=== PATIENT | male | born 1945 | race Caucasian/White ===

== ENCOUNTER 2016-05-19 12:42 | Emergency (ER) | payer OTHER ==
[2016-05-19] MEDS ORDERED: DUONEB (A & A) INH ONE (13:07)
--- NOTE | 2016-05-19 13:15 | PROVIDER DOCUMENTATION ---
HPI-Respiratory General - General Source: patient - History of Present Illness-Resp Quality of Pain: reports: tightness Severity in ED: reports: mild, moderate Onset/Duration: reports: gradual, 1 week ago Timing: reports: still present, constant Context: reports: multiple patients with similar complaints. denies: out of meds Cough Quality/Degree: reports: moderate, dry cough Episode Frequency: occasional episodes Current Respiratory Medication Therapy: Initiated see nurses note Modifying Factors: worse with: coughing Associated Symptoms: reports: cough, shortness of breath, short of breath. denies: chest pain/soreness, fever/chills, heart racing, hurts to breathe, nasal congestion, nasal drainage, wheezing Similar Symptoms Previously?: Yes Recently seen or treated by another doctor?: Yes <Gerry Sanabria - Last Filed: 05/19/16 13:11> <Sara Mcfarland - Last Filed: 05/19/16 14:01> - General Chief Complaint: Cough Stated Complaint: SOB Time Seen by Provider: 05/19/16 13:00 Allergies/Adverse Reactions: Patient Allergies Allergy/AdvReac Type Severity Reaction Status Date / Time codeine Allergy Mild RASH Verified 05/22/14 15:22 blood pressure pill Allergy Mild tachycardia Uncoded 05/22/14 15:22 Home Medications: Home Medication List Medication Instructions Recorded Confirmed Last Taken Type Omeprazole [Prilosec] 20 mg PO DAILY@0700 06/01/13 05/22/14 06/01/13 13:00 History Valsartan [Diovan] 320 mg PO DAILY 06/01/13 05/22/14 06/01/13 13:00 History Amlodipine Besylate 10 mg PO DAILY 05/22/14 05/22/14 Unknown History Aspirin [Aspirin EC] 325 mg PO DAILY 05/22/14 05/22/14 Unknown History Carisoprodol [Soma] 350 mg PO BID 05/22/14 05/22/14 Unknown History Clonidine [Catapres] 0.1 mg PO TID 05/22/14 05/22/14 Unknown History Digoxin [Lanoxin] 125 microgm PO DAILY 05/22/14 05/22/14 Unknown History Albuterol 2.5MG/Ipratrop 0.5MG 3 ml INH Q4H PRN PRN #0 neb 05/24/14 Unknown Rx [Duoneb (A & A)] Hydrochlorothiazide 25 mg PO DAILY #0 05/24/14 05/22/14 06/01/13 13:00 Rx Oseltamivir [Tamiflu] 75 mg PO BID #0 capsule 05/24/14 Unknown Rx Levofloxacin [Levaquin] 750 mg PO DAILY #10 tablet 05/19/16 Unknown Rx Prednisone [Deltasone] 20 mg PO DIRECTED #12 tablet 05/19/16 Unknown Rx - History of Present Illness-Resp Nature of Presenting Problem: patient is a 70 y/o M that presents with one week of shortness of breath, cough congestion. Pt was seen by x 2 this week, sent here for evaluation for possible pneumonia. patient denies fever/chills, chest pain, or sore throat. (Gerry Sanabria) Review of Systems - Adult - REVIEW OF SYSTEMS - ADULT Constitutional: denies: chills, fever Eyes: denies: decreased vision, blurred vision, double vision Ears, Nose, Mouth & Throat: denies: ear pain, sinus problem, throat pain, throat swelling Cardiovascular: denies: chest pain, palpitations, syncope Respiratory: reports: cough, shortness of breath. denies: wheezing Gastrointestinal: reports: no symptoms reported Genitourinary: reports: no symptoms reported Musculoskeletal: reports: no symptoms reported Integumentary: reports: no symptoms reported Neurological: reports: no symptoms reported Psychiatric: reports: no symptoms reported Endocrine: reports: no symptoms reported Hematologic/Lymphatic: reports: no symptoms reported Allergic/Immunologic: reports: no symptoms reported All Other Systems: Reviewed and Negative <Gerry Sanabria - Last Filed: 05/19/16 13:11> Past History - Adult - PAST MEDICAL HISTORY-ADULT Review of Records: reports: Old Records Reviewed, Nursing Assessment Review, Medications Reviewed, Social history reviewed & non-contributory. Major Childhood Illnesses: reports: denies history Cardiovascular: reports: cardiac disease, CAD, HTN Respiratory: reports: denies history Gastrointestinal: reports: GERD, ulcer Obstetrical/Gynecological: reports: denies history Genitourinary: reports: denies history Musculoskeletal: reports: arthritis, chronic pain, other fractures Neurological: reports: denies history Endocrine/Immune: reports: denies history Other Conditions: reports: denies history - PRIOR SURGERIES/PROCEDURES Surgical/Procedure History: reports: colonoscopy, bowel surgery, orthopedic ( extremity) - IMMUNIZATION STATUS Childhood Immunizations: See Nurse Assessment Flu Vaccine: See Nurse Assessment - FAMILY HISTORY Family History: reviewed, not pertinent <Gerry Sanabria - Last Filed: 05/19/16 13:11> Physical Exam-General - PHYSICAL EXAM-ADULT Initial Vital Signs Reviewed: Yes - CONSTITUTIONAL General Appearance: alert, no apparent distress - EYES Eyes: PERRL/EOMI, pink conjunctivae - HEAD, EARS, NOSE, MOUTH & THROAT HENMT: normocephalic/atraumatic, moist mucous membranes, normal ENT inspection - NECK Neck: full range of motion, normal inspection - RESPIRATORY Respiratory: lungs clear, normal breath sounds, no pleuratic chest pain, no respiratory distress, no accessory muscle use - CARDIOVASCULAR Cardiovascular: regular rate, rhythm, no edema, no murmur - GASTROINTESTINAL (ABDOMEN) Abdominal Exam: normal bowel sounds, non tender, soft - MUSCULOSKELETAL Extremity: normal range of motion, normal inspection - SKIN Integumentary: normal color, warm/dry - NEUROLOGIC Neurologic: grossly normal, no motor/sensory deficits - PSYCHIATRIC Psych/Mental Status: normal mood/affect, normal thought content, normal thought process, oriented x 3 <Gerry Sanabria - Last Filed: 05/19/16 13:11> Progress <Gerry Sanabria - Last Filed: 05/19/16 13:11> - XRAY 1 XRAY: Bilateral XRAY Study: Chest Impression: Abnormal (MILD BASILAR INFILTRATES AND EFFUSIONS PER RADIOLOGY) <Sara Mcfarland - Last Filed: 05/19/16 14:01> - PLAN OF CARE/RESULTS Progress/Plan/Lab Results: Vital Signs Temp Pulse Resp BP Pulse Ox 05/19/16 12:53 97.6 F 99 H 24 160/102 99 codeine Allergy (Mild, Verified 05/22/14 15:22) RASH blood pressure pill Allergy (Mild, Uncoded 05/22/14 15:22) tachycardia Omeprazole [Prilosec] 20 mg PO DAILY@0700 06/01/13 Valsartan [Diovan] 320 mg PO DAILY 06/01/13 Amlodipine Besylate 10 mg PO DAILY 05/22/14 Aspirin [Aspirin EC] 325 mg PO DAILY 05/22/14 Carisoprodol [Soma] 350 mg PO BID 05/22/14 Clonidine [Catapres] 0.1 mg PO TID 05/22/14 Digoxin [Lanoxin] 125 microgm PO DAILY 05/22/14 Albuterol 2.5MG/Ipratrop 0.5MG [Duoneb (A & A)] 3 ml INH Q4H PRN PRN #0 neb 04/09 Hydrochlorothiazide 25 mg PO DAILY #0 05/24/14 Oseltamivir [Tamiflu] 75 mg PO BID #0 capsule 05/24/14 Laboratory 05/19/16 05/19/16 13:20 13:20 WBC 8.47 RBC 5.17 Hgb 16.5 Hct 47.1 MCV 91.1 MCH 31.9 H MCHC 35.0 RDW Std Deviation 14.6 H Plt Count 212 MPV 10.4 Immature Gran % (Auto) 0.1 Neut % (Auto) 71.2 Lymph % (Auto) 18.7 L Love % (Auto) 8.5 Eos % (Auto) 0.9 Baso % (Auto) 0.6 Immature Gran # (Auto) 0.01 Neut # (Auto) 6.03 Lymph # (Auto) 1.58 Love # (Auto) 0.72 H Eos # (Auto) 0.08 Baso # (Auto) 0.05 Sodium 133 L Potassium 4.5 Chloride 96 L Carbon Dioxide 24 L Anion Gap 13 BUN 15 Creatinine 1.0 Estimated GFR/1.73 m2 > 60 BUN/Creatinine Ratio 15 Glucose 108 H Calculated Osmolality 268 Calcium 10.0 Total Bilirubin 1.00 AST 70 H ALT 65 H Alkaline Phosphatase 114 Total Protein 7.6 Albumin 4.9 Globulin 3.0 Albumin/Globulin Ratio 2.0 Orders Category Date Time Status CHEST-2 VIEWS [RAD] Stat Exams 05/19/16 12:59 Draft BLOOD CULTURE [BLDCUL] Stat Lab 05/19/16 12:59 Ordered CBC WITH DIFF [HEME] Stat Lab 05/19/16 13:20 Completed COMPREHENSIVE METABOLIC PANEL [CHEM] Stat Lab 05/19/16 13:20 Completed Albuterol 2.5MG/Ipratrop 0.5MG [Duoneb (A & A)] Med 05/19/16 13:07 Discontinued 3 ml INH NOW ONE Aerosol Treatments Routine Oth 05/19/16 13:07 Active Aerosol Treatments Stat Oth 05/19/16 13:07 Active (Sara Mcfarland) Departure <Gerry Sanabria - Last Filed: 05/19/16 13:11> - Departure Time of Disposition Order: 14:00 Certified Medical Emergency: Emergent <Sara Mcfarland - Last Filed: 05/19/16 14:01> - Departure DIAGNOSIS: Pneumonia Qualifiers: Pneumonia type: due to unspecified organism Laterality: bilateral Lung location : lower lobe of lung Qualified Code(s): J18.9 - Pneumonia, unspecified organism Disposition: HOME 01 Condition: Stable Additional Instructions: Follow up with your primary care physician ED Follow Up Instructions: You have been treated by a care provider in the Emergency Department. These instructions are being provided to you so you can have an understanding of how to care for yourself upon discharge. Upon discharge from the Emergency Department, you are responsible for making arrangements for follow-up care by a physician of your choice. Take all prescribed medications as directed. Return to the Emergency Department immediately for any new or worsening symptoms. You may call the Physician Referral phone number at [phone] to obtain a list of Physicians who are taking new patients. Prescriptions: Prednisone [Deltasone] 20 mg PO DIRECTED #12 tablet Levofloxacin [Levaquin] 750 mg PO DAILY #10 tablet Attestation - Scribe Verification/Attestation Scribe:: Gerry Sanabria Acting as Scribe for:: Sara Mcfarland Scribe documention review:: This chart was documented by a scribe and accurately reflects the service the provider performed and the decisions made by the provider. - Physician/ GREGG Attestation Patient care was provided by Advanced Practice Provider:: Yes Advanced Practice Provider:: Sara Mcfarland Advanced Practice Provider documentation review:: The Mid-level provider documentation, treatment plan and medical decision making was reviewed by the physician who agrees with all treatment and medical decision making by the P. <Gerry Sanabria - Last Filed: 05/19/16 13:11> Physician Attestation - Physician Attestation I, the provider, attest to the following statement:: Sara Mcfarland Physician documentation Attestation:: This documentation recorded by the scribe accurately reflects the service I personally performed and the decisions made by me. <Gerry Sanabria - Last Filed: 05/19/16 13:11>
[2016-05-19 13:37] LABS: MANUAL DIFF NEEDED? NO
[2016-05-19 13:40] LABS: BASO% 0.6 % (0.0-0.8); EOS# 0.08 X1000 (0.0-0.7); EOS% 0.9 % (0.0-10.0); HEMATOCRIT 47.1 % (42.0-52.0); HEMOGLOBIN 16.5 g/dL (14.0-18.0); IMM GRAN# 0.01 X1000 (0.0-0.04); IMM GRAN% 0.1 % (0.0-0.5); LYMPH# 1.58 X1000 (1.2-3.4); LYMPH% 18.7 % (20.5-51.1); MCH 31.9 PG (27-31); MCV 91.1 FL (81-99); MONO# 0.72 X1000 (0.11-0.59); MONO% 8.5 % (1.7-9.3); MPV 10.4 FL (7.4-10.4); NEUT% 71.2 % (42.2-75.2); PLT 212 X1000 (130-400); RBC 5.17 XMIL (4.7-6.1)
[2016-05-19 13:56] LABS: AGAP 13; ALBUMIN 4.9 g/dL (3.5-5.0); ALKALINE PHOSPHATASE 114 U/L (32-122); BUN 15 mg/dL (8-22); CHLORIDE 96 mmol/L (98-107); COSMO 268; GOT 70 U/L (10-34); GPT 65 U/L (10-44); POTASSIUM 4.5 mmol/L (3.5-5.1); SODIUM 133 mmol/L (136-145); TCO2 24 mmol/L (25-35); TOTAL PROTEIN 7.6 g/dL (6.3-8.3)
--- NOTE | 2016-05-19 13:59 | Diag Imaging Result Document ---
PROCEDURE NAME: CHEST-2 VIEWS - 05/19/2016 CHEST 2 VIEWS: COMPARISON: 05/22/2014. FINDINGS: Heart size appears upper range of normal. There are mild basilar infiltrates, most prominent on the right. There are apparent small bilateral pleural effusions. There is no pneumothorax seen. There is thoracic spondylosis noted. IMPRESSION: Mild basilar infiltrates and small pleural effusions.
[2016-05-19 14:15] VITALS: BP 130/070
== END 2016-05-19 14:14 | disposition home or self-care (01) ==
LOC: P.ED 12:42
DX: J18.9 Pneumonia, unspecified organism (principal); R06.02 Shortness of breath; R05 Cough; I10 Essential (primary) hypertension; K21.9 Gastro-esophageal reflux disease without esophagitis; M19.90 Unspecified osteoarthritis, unspecified site; G89.29 Other chronic pain; Z79.899 Other long term (current) drug therapy; Z79.82 Long term (current) use of aspirin; Z79.51 Long term (current) use of inhaled steroids; Z79.52 Long term (current) use of systemic steroids
CPT/HCPCS: 36415; 71020; 80053; 85025; 87040; 94640; 99283

== ENCOUNTER 2016-05-20 03:56 | Inpatient (IN) | payer OTHER ==
[2016-05-20] MEDS ORDERED: ASPIRIN PO STA (04:19)
[2016-05-20] MEDS ORDERED: NITROGLYCERIN SL PRN (04:19)
[2016-05-20 04:32] LABS: MANUAL DIFF NEEDED? NO
--- NOTE | 2016-05-20 04:34 | PROVIDER DOCUMENTATION ---
HPI-Respiratory General - General Chief Complaint: Cough Stated Complaint: FEVER, VOMITING, ABD PAIN, PNEUMONIA Time Seen by Provider: 05/20/16 04:17 Allergies/Adverse Reactions: Patient Allergies Allergy/AdvReac Type Severity Reaction Status Date / Time codeine Allergy Mild RASH Verified 05/22/14 15:22 blood pressure pill Allergy Mild tachycardia Uncoded 05/22/14 15:22 Home Medications: Home Medication List Medication Instructions Recorded Confirmed Last Taken Type Omeprazole [Prilosec] 20 mg PO DAILY@0700 06/01/13 05/20/16 05/19/16 History Valsartan [Diovan] 320 mg PO DAILY 06/01/13 05/20/16 05/19/16 History Aspirin [Aspirin EC] 325 mg PO DAILY 05/22/14 05/20/16 05/19/16 History Clonidine [Catapres] 0.1 mg PO TID 05/22/14 05/20/16 05/19/16 History Digoxin [Lanoxin] 125 microgm PO DAILY 05/22/14 05/20/16 05/19/16 History Hydrochlorothiazide 25 mg PO DAILY #0 05/24/14 05/20/16 05/19/16 Rx Levofloxacin [Levaquin] 750 mg PO DAILY #10 tablet 05/19/16 05/20/16 05/19/16 Rx Prednisone [Deltasone] 20 mg PO DIRECTED #12 tablet 05/19/16 05/20/16 Rx Finasteride 5 mg PO DAILY 05/20/16 05/20/16 05/19/16 History Ipratropium/Albuterol INH 2 puff INH 4XDAY 05/20/16 05/20/16 05/19/16 History [Combivent Respimat Inhaler] Magnesium Oxide [Magnesium] 400 mg PO DAILY 05/20/16 05/20/16 05/19/16 History Multivits,Ca,Min/Iron/FA/Lycop 1 each PO DAILY 05/20/16 05/20/16 05/19/16 History [Centrum Men's Tablet] Tamsulosin [Flomax] 0.4 mg PO DAILY 05/20/16 05/20/16 05/19/16 History - History of Present Illness-Resp Nature of Presenting Problem: pt states he got sick with a cough about a week ago. His cough is productive of green sp[utum. HE has been having sweats and nausea and occasional vomiting. HE has diffuse myalgias but does not think he has had a fever. He last smoked 27 years ago. HE saw his PCP [address] on [place] and a [place] and tht s when the nausea vomiting started. He was seen a [facility] yesterday and diagnosed with pnuemonia and started on Levaquin and steroids but comes back tonight feeling more SOB and more nausea/vomiting Review of Systems - Adult - REVIEW OF SYSTEMS - ADULT Constitutional: reports: fatique. denies: chills, fever Eyes: denies: discharge Ears, Nose, Mouth & Throat: denies: ear pain, sinus problem, throat pain Cardiovascular: denies: chest pain, edema Respiratory: reports: cough, dyspnea on exertion, excessive sputum production, shortness of breath, wheezing Gastrointestinal: reports: abdominal pain, nausea, vomiting. denies: diarrhea Genitourinary: denies: dysuria, frequency Musculoskeletal: reports: muscle aches Integumentary: reports: no symptoms reported. denies: rash Neurological: reports: no symptoms reported Psychiatric: reports: no symptoms reported Endocrine: reports: no symptoms reported Hematologic/Lymphatic: reports: no symptoms reported Allergic/Immunologic: reports: no symptoms reported All Other Systems: Reviewed and Negative Past History - Adult - PAST MEDICAL HISTORY-ADULT Review of Records: reports: Old Records Reviewed, Nursing Assessment Review, Medications Reviewed, Social history reviewed & non-contributory. Major Childhood Illnesses: reports: denies history Cardiovascular: reports: cardiac disease, CAD, HTN Respiratory: reports: denies history Gastrointestinal: reports: GERD, ulcer Obstetrical/Gynecological: reports: denies history Genitourinary: reports: denies history Musculoskeletal: reports: arthritis, chronic pain, other fractures Neurological: reports: denies history Endocrine/Immune: reports: denies history Other Conditions: reports: denies history - PRIOR SURGERIES/PROCEDURES Surgical/Procedure History: reports: colonoscopy, bowel surgery, orthopedic ( extremity) - IMMUNIZATION STATUS Childhood Immunizations: See Nurse Assessment Flu Vaccine: See Nurse Assessment - FAMILY HISTORY Family History: reviewed, not pertinent - SOCIAL HISTORY Smoking: quit greater than 1 year Alcohol Use Frequency: never Living Situation: family Physical Exam-General - PHYSICAL EXAM-ADULT Initial Vital Signs Reviewed: Yes - CONSTITUTIONAL General Appearance: appears well, alert, no apparent distress - EYES Eyes: pink conjunctivae. negative: scleral icterus - HEAD, EARS, NOSE, MOUTH & THROAT HENMT: normocephalic/atraumatic, pharynx normal - NECK Neck: non-tender, full range of motion, supple, normal inspection. negative: lymphadenopathy - RESPIRATORY Respiratory: chest non-tender, lungs clear, normal breath sounds, no pleuratic chest pain, no respiratory distress, no accessory muscle use - CARDIOVASCULAR Cardiovascular: no edema, no murmur, tachycardia, irregularly irregular - GASTROINTESTINAL (ABDOMEN) Abdominal Exam: normal bowel sounds, non tender, soft, no organomegaly, no pulsatile mass - MUSCULOSKELETAL Back Exam: normal inspection, no CVA tenderness, no vertebral tenderness Extremity: non-tender, normal inspection, no pedal edema, no calf tenderness - SKIN Integumentary: normal color, normal turgor, warm/dry - NEUROLOGIC Neurologic: audit analyst II-XII nml as tested, grossly normal, no motor/sensory deficits - PSYCHIATRIC Psych/Mental Status: normal mood/affect, normal thought content, normal thought process, oriented x 3 Progress - PLAN OF CARE/RESULTS Progress/Plan/Lab Results: Laboratory Tests 05/20/16 05/20/16 05/20/16 04:25 04:25 04:25 WBC 8.15 RBC 5.26 Hgb 17.0 Hct 47.6 MCV 90.5 MCH 32.3 H MCHC 35.7 RDW Std Deviation 14.3 Plt Count 223 MPV 11.0 H Immature Gran % (Auto) 0.0 Neut % (Auto) 82.2 H Lymph % (Auto) 12.0 L [place] % (Auto) 5.6 Eos % (Auto) 0.0 Baso % (Auto) 0.2 Immature Gran # (Auto) 0.00 Neut # (Auto) 6.69 H Lymph # (Auto) 0.98 L [place] # (Auto) 0.46 Eos # (Auto) 0.00 Baso # (Auto) 0.02 PT INR PTT (Actin FS) D-Dimer 0.79 H Sodium 136 Potassium 4.3 Chloride 96 L Carbon Dioxide 22 L Anion Gap 18 BUN 17 Creatinine 1.0 Estimated GFR/1.73 m2 > 60 BUN/Creatinine Ratio 17 Glucose 144 H Calculated Osmolality 276 Calcium 10.0 Magnesium 1.7 Total Bilirubin 0.92 AST 67 H ALT 73 H Alkaline Phosphatase 103 Creatine Kinase 172 Troponin T Fki-U-Nhvtlrrskar Pept Total Protein 7.0 Albumin 4.5 Globulin 2.5 Albumin/Globulin Ratio 1.8 Lipase Plasma Lactate 05/20/16 05/20/16 05/20/16 04:25 04:25 04:25 WBC RBC Hgb Hct MCV MCH MCHC RDW Std Deviation Plt Count MPV Immature Gran % (Auto) Neut % (Auto) Lymph % (Auto) [place] % (Auto) Eos % (Auto) Baso % (Auto) Immature Gran # (Auto) Neut # (Auto) Lymph # (Auto) [place] # (Auto) Eos # (Auto) Baso # (Auto) PT 12.7 H INR 1.20 PTT (Actin FS) 27.2 D-Dimer Sodium Potassium Chloride Carbon Dioxide Anion Gap BUN Creatinine Estimated GFR/1.73 m2 BUN/Creatinine Ratio Glucose Calculated Osmolality Calcium Magnesium Total Bilirubin AST ALT Alkaline Phosphatase Creatine Kinase Troponin T < 0.010 Zcs-N-Alhrrlnfenr Pept 8552 H Total Protein Albumin Globulin Albumin/Globulin Ratio Lipase Plasma Lactate 05/20/16 05/20/16 04:25 04:25 WBC RBC Hgb Hct MCV MCH MCHC RDW Std Deviation Plt Count MPV Immature Gran % (Auto) Neut % (Auto) Lymph % (Auto) [place] % (Auto) Eos % (Auto) Baso % (Auto) Immature Gran # (Auto) Neut # (Auto) Lymph # (Auto) [place] # (Auto) Eos # (Auto) Baso # (Auto) PT INR PTT (Actin FS) D-Dimer Sodium Potassium Chloride Carbon Dioxide Anion Gap BUN Creatinine Estimated GFR/1.73 m2 BUN/Creatinine Ratio Glucose Calculated Osmolality Calcium Magnesium Total Bilirubin AST ALT Alkaline Phosphatase Creatine Kinase Troponin T Jjl-[id number]-Jtsvautsahq Pept Total Protein Albumin Globulin Albumin/Globulin Ratio Lipase 26 Plasma Lactate 2.0 Orders Category Date Time Status Cardiac Monitoring DIRECTED Care 05/20/16 04:19 Active Saline Loc NOW Care 05/20/16 04:19 Active ANGIOGRAM/PULMONARY ARTERIES [CT] Stat Exams 05/20/16 05:17 Taken CHEST-2 VIEWS [RAD] Stat Exams 05/20/16 04:19 Taken CBC WITH ELECTRONIC DIFF [HEME] Stat Lab 05/20/16 04:25 Completed CK PROFILE [SP CHEM] Stat Lab 05/20/16 04:25 Completed COMPREHENSIVE METABOLIC PANEL [CHEM] Stat Lab 05/20/16 04:25 Completed D-DIMER [CHEM] Stat Lab 05/20/16 04:25 Completed LACTATE, PLASMA [CHEM] Stat Lab 05/20/16 04:25 Completed LIPASE [CHEM] Stat Lab 05/20/16 04:25 Completed MAGNESIUM [CHEM] Stat Lab 05/20/16 04:25 Completed PRO B-NATRIURETIC PEPTIDE Stat Lab 05/20/16 04:25 Completed PROTIME WITH INR [COAG] Stat Lab 05/20/16 04:25 Completed PTT [COAG] Stat Lab 05/20/16 04:25 Completed TROPONIN T Stat Lab 05/20/16 04:25 Completed Aspirin Med 05/20/16 04:19 Discontinued 325 mg PO STAT STA Diltiazem [Cardizem] Med 05/20/16 05:22 Discontinued 10 mg IV NOW ONE Furosemide [Lasix] Med 05/20/16 06:00 Once 40 mg IV NOW ONE Nitroglycerin Sl [Nitroglycerin] Med 05/20/16 04:19 Active 0.4 mg SL Q5M PRN PRN Ondansetron [Zofran] Med 05/20/16 04:43 Discontinued 4 mg IV NOW ONE EKG [EKG] Stat Ther 05/20/16 04:11 Ordered Vital Signs Temp Pulse Resp BP Pulse Ox 05/20/16 04:09 97.2 F L 55 L 22 175/113 100 codeine Allergy (Mild, Verified 05/22/14 15:22) RASH blood pressure pill Allergy (Mild, Uncoded 05/22/14 15:22) tachycardia Omeprazole [Prilosec] 20 mg PO DAILY@0700 06/01/13 Valsartan [Diovan] 320 mg PO DAILY 06/01/13 Aspirin [Aspirin EC] 325 mg PO DAILY 05/22/14 Clonidine [Catapres] 0.1 mg PO TID 05/22/14 Digoxin [Lanoxin] 125 microgm PO DAILY 05/22/14 Hydrochlorothiazide 25 mg PO DAILY #0 05/24/14 Levofloxacin [Levaquin] 750 mg PO DAILY #10 tablet 05/19/16 Prednisone [Deltasone] 20 mg PO DIRECTED #12 tablet 05/19/16 Finasteride 5 mg PO DAILY 05/20/16 Ipratropium/Albuterol INH [Combivent Respimat Inhaler] 2 puff INH 4XDAY Magnesium Oxide [Magnesium] 400 mg PO DAILY 05/20/16 Multivits,Ca,Min/Iron/FA/Lycop [Centrum Men's Tablet] 1 each PO DAILY 05/20/16 Tamsulosin [Flomax] 0.4 mg PO DAILY 05/20/16 Laboratory 05/20/16 05/20/16 05/20/16 04:25 04:25 04:25 WBC RBC Hgb Hct MCV MCH MCHC RDW Std Deviation Plt Count MPV Immature Gran % (Auto) Neut % (Auto) Lymph % (Auto) [place] % (Auto) Eos % (Auto) Baso % (Auto) Immature Gran # (Auto) Neut # (Auto) Lymph # (Auto) [place] # (Auto) Eos # (Auto) Baso # (Auto) PT INR PTT (Actin FS) D-Dimer Sodium Potassium Chloride Carbon Dioxide Anion Gap BUN Creatinine Estimated GFR/1.73 m2 BUN/Creatinine Ratio Glucose Calculated Osmolality Calcium Magnesium Total Bilirubin AST ALT Alkaline Phosphatase Creatine Kinase Troponin T < 0.010 Zmh-H-Ywtlthfmevp Pept Total Protein Albumin Globulin Albumin/Globulin Ratio Lipase 26 Plasma Lactate 2.0 05/20/16 05/20/16 05/20/16 04:25 04:25 04:25 WBC RBC Hgb Hct MCV MCH MCHC RDW Std Deviation Plt Count MPV Immature Gran % (Auto) Neut % (Auto) Lymph % (Auto) [place] % (Auto) Eos % (Auto) Baso % (Auto) Immature Gran # (Auto) Neut # (Auto) Lymph # (Auto) [place] # (Auto) Eos # (Auto) Baso # (Auto) PT 12.7 H INR 1.20 PTT (Actin FS) 27.2 D-Dimer 0.79 H Sodium Potassium Chloride Carbon Dioxide Anion Gap BUN Creatinine Estimated GFR/1.73 m2 BUN/Creatinine Ratio Glucose Calculated Osmolality Calcium Magnesium Total Bilirubin AST ALT Alkaline Phosphatase Creatine Kinase Troponin T Oef-W-Fsovqmickzx Pept 8552 H Total Protein Albumin Globulin Albumin/Globulin Ratio Lipase Plasma Lactate 05/20/16 05/20/16 04:25 04:25 WBC 8.15 RBC 5.26 Hgb 17.0 Hct 47.6 MCV 90.5 MCH 32.3 H MCHC 35.7 RDW Std Deviation 14.3 Plt Count 223 MPV 11.0 H Immature Gran % (Auto) 0.0 Neut % (Auto) 82.2 H Lymph % (Auto) 12.0 L [place] % (Auto) 5.6 Eos % (Auto) 0.0 Baso % (Auto) 0.2 Immature Gran # (Auto) 0.00 Neut # (Auto) 6.69 H Lymph # (Auto) 0.98 L [place] # (Auto) 0.46 Eos # (Auto) 0.00 Baso # (Auto) 0.02 PT INR PTT (Actin FS) D-Dimer Sodium 136 Potassium 4.3 Chloride 96 L Carbon Dioxide 22 L Anion Gap 18 BUN 17 Creatinine 1.0 Estimated GFR/1.73 m2 > 60 BUN/Creatinine Ratio 17 Glucose 144 H Calculated Osmolality 276 Calcium 10.0 Magnesium 1.7 Total Bilirubin 0.92 AST 67 H ALT 73 H Alkaline Phosphatase 103 Creatine Kinase 172 Troponin T Wyk-I-Dntchoujgsx Pept Total Protein 7.0 Albumin 4.5 Globulin 2.5 Albumin/Globulin Ratio 1.8 Lipase Plasma Lactate - EKG 1 Time of EKG reading by physician:: 04:15 EKG Interpretation (*Must complete 3 of following elements*): Abnormal Rate: 123 Rhythm: atrial fib w/RVR [place]: normal QRS: LVH ST Wave: non-specific ST changes Prior EKG Comparison: unchanged from prior - XRAY 1 XRAY Study: Chest (unchanged from yesterday which was officialy read as mild bibasiliar infiltrate and small plueral effusion and mild cardiomegaly) - CT/MRI 1 CT Study: Angiogram Impression: Abnormal (moderate bilat plueral effusions consistent with CHF, no PE or pnuemonia) Departure - Departure Time of Disposition Order: 06:01 DIAGNOSIS: Atrial fibrillation with RVR CHF (congestive heart failure) Qualifiers: Congestive heart failure type: unspecified congestive heart failure type Congestive heart failure chronicity: acute Qualified Code(s): I50.9 - Heart failure, unspecified Disposition: ADMITTED INPATIENT 09 Certified Medical Emergency: Emergent Condition: Fair
[2016-05-20] MEDS ORDERED: ZOFRAN IV ONE (04:43)
[2016-05-20 04:50] LABS: INR 1.2; PROTIME 12.7 Seconds (9.2-11.7); PTT 27.2 Seconds (22.0-36.0)
[2016-05-20 04:54] LABS: BASO% 0.2 % (0.0-0.8); HEMATOCRIT 47.6 % (42.0-52.0); LYMPH# 0.98 X1000 (1.2-3.4); MCH 32.3 PG (27-31); MCHC 35.7 g/dL (33-37); MCV 90.5 FL (81-99); MONO# 0.46 X1000 (0.11-0.59); MONO% 5.6 % (1.7-9.3); NEUT% 82.2 % (42.2-75.2); PLT 223 X1000 (130-400); RBC 5.26 XMIL (4.7-6.1)
[2016-05-20 05:03] LABS: AGAP 18; ALBUMIN 4.5 g/dL (3.5-5.0); ALKALINE PHOSPHATASE 103 U/L (32-122); BUN 17 mg/dL (8-22); CHLORIDE 96 mmol/L (98-107); CK PROFILE 172 U/L (24-204); COSMO 276; GOT 67 U/L (10-34); GPT 73 U/L (10-44); MAGNESIUM 1.7 mg/dL (1.5-2.7); POTASSIUM 4.3 mmol/L (3.5-5.1); SODIUM 136 mmol/L (136-145); TCO2 22 mmol/L (25-35); TOTAL BILIRUBIN 0.92 mg/dL (0.20-1.00)
[2016-05-20] MEDS ORDERED: CARDIZEM IV ONE (05:22)
[2016-05-20] MEDS ORDERED: LASIX IV ONE (06:00)
[2016-05-20] MEDS ORDERED: TYLENOL PO PRN (06:25)
[2016-05-20] MEDS ORDERED: ZOFRAN IV PRN (06:25)
[2016-05-20] MEDS ORDERED: NS 1,000 ML IV SCH (06:30)
--- NOTE | 2016-05-20 07:33 | HISTORY AND PHYSICAL ---
CHIEF COMPLAINT: Shortness of breath but also nausea and vomiting. HISTORY OF PRESENT ILLNESS: Reportedly, he has been short of breath for about a week with cough productive of green sputum, occasional nausea. He has chronic issues with nausea and dysphagia, it sounds like secondary to a hiatal hernia that has is not amenable to repair. He had myalgias. He was seen by his PCP, Dr. Gómez Maldonado, about 3 days ago. Started on azithromycin and Tessalon. Then, was seen at [facility] yesterday and thought to have pneumonia. He was put on Levaquin and steroids but did not improve. Workup here is more consistent with congestive heart failure exacerbation, which is not an established diagnosis with him, but in any case, he had an abnormal stress test in 2014 but did not get the followup catheter, at least at our facility. I think he was due to get a catheter and then he never went through the procedure. This was in June. So, it is unclear at this point what his cardiac function is, although based on his perfusion scan, his EF is intact; granted that was 2 years ago. Patient complains of nausea and vomiting, but again that is chronic. Scans here show bilateral pleural effusions. He has an elevated BNP. He does report dyspnea on exertion and he was admitted for CHF exacerbation. He was also in atrial fibrillation with rapid ventricular response which is now rate controlled. PAST MEDICAL HISTORY: 1. Hypertension. 2. BPH. 3. Possible heart failure. He is on digoxin. 4. Atrial fibrillation. PAST SURGICAL HISTORY: He has had hernia repair x2. Abdominal hernia. SOCIAL HISTORY: No tobacco, he quit over 20 years ago. He is a . ALLERGIES: Codeine and reportedly a blood pressure pill. MEDICATION: Reportedly Prilosec 20, Diovan 320, aspirin 325 daily, clonidine 0.1 t.i.d., digoxin 125 daily, DuoNebs 4 times a day, finasteride 5 daily, Flomax 0.4 daily, magnesium 400 daily, multivitamin daily, hydrochlorothiazide 25 daily, Levaquin and Deltasone which have not been completed here. REVIEW OF SYSTEMS: Otherwise negative. PHYSICAL EXAMINATION: VITAL SIGNS: Blood pressure 175/113 heart rate of 55, respiratory rate 20, temperature degrees 97.2 degrees, 100% on room air. GENERAL: A well-developed male, no acute distress. HEAD: Normocephalic, atraumatic. Eyes exam: Pupils were equal, round, reactive to light. Extraocular movements were intact. EAR/NOSE/THROAT: Had moist mucous membranes. NECK: Supple. PULMONARY: Diminished at the bases with bronchial breath sounds. GI: Soft, nontender, nondistended. Bowel sounds are positive. EXTREMITIES: No clubbing or cyanosis. LYMPHATICS: He had trace edema. NEUROLOGICAL: Nonfocal. DIAGNOSTIC DATA: White count is normal. Chemistries are intact. AST and ALT is up a little bit 67 and 73. ProBNP is 8552. Troponin was negative. Chest CT reportedly showed bilateral pleural effusion. No pneumonia. Cardiomegaly, was more consistent with volume overload. It was also negative for PE. PROBLEM LIST/ASSESSMENT AND PLAN: 1. This is a 70-year-old gentleman who comes in from home with shortness of breath and mild lower extremity edema, pleural effusions, cardiomegaly. There is concern over heart failure. Apparently, he has had a positive stress test, but I am not sure if he has had any followup since that time. So, I am concerned about an acute congestive heart failure exacerbation. So, we will continue diuretics. There is no evidence of infection besides his productive sputum, but he does not have a white count or other noted issues to be concerned about infections. So, I think were going to treat him for heart failure and do an echo and get Cardiology opinion. 2. Atrial fibrillation, is not rate controlled. Interestingly enough, he is not on any rate controlling medications besides digoxin, which is odd. I will check his level and I am going to put him on Lopressor - I will do Cardizem and see how he does. At this point, he is rate controlled. He does not need a drip. 3. Benign prostatic hypertrophy. Continue his regular medications. 4. Atrial fibrillation. We will continue medications as described. For some reason, we are holding anticoagulation. It is unclear but this is per his primary blocker and polisher, Dr. Cordero. I think he probably would benefit from that, but we will get Cardiology's input concerning that issue.
[2016-05-20] MEDS: LOVENOX SUBQ SCH (07:44)
[2016-05-20] MEDS ORDERED: NITROGLYCERIN TOP SCH (07:52)
[2016-05-20] MEDS: PROTONIX IV SCH (08:22)
[2016-05-20] MEDS: COREG PO SCH ×2 (08:23→23:45)
--- NOTE | 2016-05-20 09:21 | Diag Imaging Result Document ---
PROCEDURE NAME: ANGIOGRAM/PULMONARY ARTERIES - 05/20/2016 CT OF THE CHEST WITH INTRAVENOUS CONTRAST: FINDINGS: There are bilateral pleural effusions. There are no filling defects in the pulmonary arteries. There is suboptimal opacification of the aorta but no evidence of dilatation or dissection is present. There are coronary calcifications present in the circumflex and left anterior descending arteries. Postsurgical changes are present in the gastric fundus region. There is some reflux of contrast into the inferior vena cava and hepatic veins which is consistent with a relatively low output state. There are patchy ill-defined opacities present in the lung bases which may indicate a mild degree of pulmonary edema. The possibility of pneumonia cannot be entirely excluded. There is no evidence of significant adenopathy. IMPRESSION: Pleural effusions and pulmonary edema. No evidence of pulmonary emboli.
--- NOTE | 2016-05-20 09:23 | Diag Imaging Result Document ---
PROCEDURE NAME: CHEST-2 VIEWS - 05/20/2016 2 VIEWS OF THE CHEST: FINDINGS: There is minimal pleural fluid present particularly on the right. There is some atelectasis in the lung bases. The heart size is at the upper limits of normal. Compared to the previous study of 05/19/2016, there has been no appreciable change. IMPRESSION: Basilar atelectasis and small pleural effusions.
--- NOTE | 2016-05-20 14:30 | ECHO REPORT ---
ORDER DATE: 05/20/2016 INDICATION: Congestive heart failure, atrial fibrillation. FINDINGS: 1. Right atrium is moderately enlarged at 5.3 cm. 2. There is mild tricuspid regurgitation. RV systolic pressure of 35. 3. Normal RV size with mild reduction in RV systolic function. 4. Mild pulmonic insufficiency. 5. Moderate left atrial enlargement at 5.1 cm. 6. No mitral prolapse. Moderate mitral regurgitation. 7. Normal LV size, end-diastolic dimension of 4.5. Mild left ventricular hypertrophy with posterior and interventricular septal thickness of 1.3 cm each. Severely reduced LV systolic function. Calculated EF of 26% with global hypokinesis. 8. Aortic valve opens well and appears trileaflet. No evidence of stenosis. There is trace aortic insufficiency. 9. Aorta appears normal on visualized segments. 10. No pericardial effusion seen. 11. Transmitral Doppler indicates the patient is in atrial fibrillation.
--- NOTE | 2016-05-20 14:40 | CONSULTATION ---
DATE OF CONSULTATION: 05/20/2016 INDICATION: Congestive heart failure, atrial fibrillation. HISTORY OF PRESENT ILLNESS: Mr. Tapia is a 70-year-old, white male with a history of atrial fibrillation, hypertension, previous TIA. He presented for evaluation of shortness of breath as well as nausea and vomiting. This seems to have gone on for several days. He has been seen by Dr. Maldonado as well as Meri. He was thought to have a pneumonia and was put on some antibiotics. He continued to have worsening symptoms including orthopnea and subsequently presented. Here he has an elevated proBNP and a concern for congestive heart failure. In addition, initially his atrial fibrillation was not rate controlled. He has currently received diuresis. He has had negative cardiac enzymes thus far. PAST MEDICAL HISTORY: 1. Significant for hypertension. 2. BPH. 3. Congestive heart failure. Last echocardiogram demonstrated an EF of 55-60, though. 4. Chronic atrial fibrillation. 5. TIA. 6. Hypertension. 7. Reflux disease. SOCIAL HISTORY: No tobacco, he quit 20 years ago. He is a , occasionally getting care at the [facility]. REVIEW OF SYSTEMS: A 10 system review of systems is negative except for those things mentioned in HPI. FAMILY HISTORY: Significant for hypertension. PHYSICAL EXAMINATION: Vital Signs: He is afebrile. Heart rate of 81, blood pressure 138/99. His ins and outs show that he has been negative around 1000 mL over the course of the hospitalization. General: No acute distress. Cardiovascular: He is in an irregularly irregular rate controlled rhythm. He has 1+ bilateral lower extremity edema and warm and well perfused lower extremities. Chest: Exam is clear bilaterally. He has no increased work of breathing. Abdomen: Soft, nontender, nondistended. He has no obvious organomegaly. Skin: Warm and dry throughout without any rashes. Neurological: He is moving all extremities well. Cranial nerves 2-12 are intact without any sensation deficits. Psychiatric: He is alert, oriented, pleasant. He has normal mood and affect. PERTINENT DATA: His CTA of his chest shows pleural effusions and pulmonary edema. No evidence of emboli noted. His laboratory data shows white count 8.1, hematocrit 47, platelet count 223,000. His INR is 1.2. D-dimer is 0.79. His sodium is 136. Potassium is 4.3. BUN 17, creatinine 1.0. His cardiac enzymes are negative times multiple sets. His proBNP is 8552. EKG was evaluated and shows atrial fibrillation with rapid ventricular response. ASSESSMENT: 1. Atrial fibrillation with rapid ventricular response in a patient with chronic atrial fibrillation. 2. Likely congestive heart failure. PLAN: We will obtain an echocardiogram. We will continue diuresis. His rate seems reasonably well controlled presently. We will need to determine his EF to better determine the medical therapy for his heart failure. He was supposed to have a cardiac catheterization done 2 years ago, but the patient apparently did not show and he is not clear exactly what happened around that time period. We may need to consider some form of ischemia evaluation potentially as an outpatient.
[2016-05-20] MEDS: LASIX IV SCH (18:27)
[2016-05-20] MEDS: NITROGLYCERIN TOP SCH ×2 (18:29→22:30)
[2016-05-20] MEDS: ENTRESTO 24 MG-26 MG TABLET PO SCH (23:44)
[2016-05-21 04:37] LABS: HEMATOCRIT 45.1 % (42.0-52.0); HEMOGLOBIN 16.3 g/dL (14.0-18.0); MCH 32.5 PG (27-31); MCHC 36.1 g/dL (33-37); MPV 10.2 FL (7.4-10.4); RBC 5.01 XMIL (4.7-6.1)
[2016-05-21 05:34] LABS: CALCIUM 9.7 mg/dL (8.8-10.2); MAGNESIUM 1.6 mg/dL (1.5-2.7); POTASSIUM 3.8 mmol/L (3.5-5.1)
[2016-05-21] MEDS: LASIX IV SCH ×3 (07:30→19:46)
[2016-05-21] MEDS: NITROGLYCERIN TOP SCH ×3 (07:31→22:41)
[2016-05-21] MEDS: LOVENOX SUBQ SCH (07:32)
[2016-05-21] MEDS: PROTONIX IV SCH (07:39)
[2016-05-21] MEDS: COREG PO SCH ×2 (09:00→21:28)
[2016-05-21] MEDS: ENTRESTO 24 MG-26 MG TABLET PO SCH (09:00)
[2016-05-21] MEDS ORDERED: MAGNESIUM SULFATE 2 GM/S.W.I. 50 ML IV ONE (13:11)
--- NOTE | 2016-05-21 17:45 | PROGRESS NOTE ---
DATE: 05/21/2016 SUBJECTIVE: This patient states that he is feeling better, he is not complaining of shortness of breath or chest pain at this moment, he denies nausea, vomiting, diarrhea, constipation. OBJECTIVE: Vital Signs: Temperature 97.9 degrees, pulse 86, respiratory rate 16, blood pressure 148/99. Oxygen saturation 96% on room air. HEENT: Head normocephalic. No trauma. PERRLA. Neck: Supple. No JVD. No masses. Central trachea. Chest: Bilateral rales at the bases. Cardiovascular: Irregularly irregular rate and rhythm that is controlled. Abdomen: Soft, nontender, nondistended. No hepatosplenomegaly. Extremities: 1+ lower extremity edema. Neurological examination: The patient is hard of hearing, alert and oriented x3. No focal neurological deficits. LABORATORY: WBC 9.7, hemoglobin 16.3, hematocrit 45.1, platelets 219,000. Sodium 139, potassium 3.8, chloride 98, bicarbonate 27, BUN 14, creatinine 1.2, glucose 110, calcium 9.7, magnesium 1.6. ASSESSMENT AND PLAN: 1. Atrial fibrillation with rapid ventricular response, resolved, now this patient is rate controlled. I will continue this patient on carvedilol and he was recently put on Entresto. 2. Systolic heart failure exacerbation, this patient had a new echocardiogram that showed that the ejection fraction is around 26%. I will continue diuresing this patient and following with the recommendation of Cardiology Department. 3. Benign prostatic hypertrophy. Continue with regular medications. 4. Hypertension. Stable. Continue with the same management.
[2016-05-21] MEDS: ENTRESTO 49 MG-51 MG TABLET PO SCH (21:30)
[2016-05-22 06:12] LABS: MANUAL DIFF NEEDED? NO
[2016-05-22 06:31] LABS: BASO% 0.7 % (0.0-0.8); EOS# 0.21 X1000 (0.0-0.7); HEMATOCRIT 51.7 % (42.0-52.0); HEMOGLOBIN 18.7 g/dL (14.0-18.0); IMM GRAN# 0.02 X1000 (0.0-0.04); IMM GRAN% 0.2 % (0.0-0.5); LYMPH# 2.16 X1000 (1.2-3.4); LYMPH% 20.9 % (20.5-51.1); MCH 32.2 PG (27-31); MCHC 36.2 g/dL (33-37); MCV 89.1 FL (81-99); MONO# 1.17 X1000 (0.11-0.59); MONO% 11.3 % (1.7-9.3); MPV 10.6 FL (7.4-10.4); NEUT% 64.9 % (42.2-75.2); PLT 255 X1000 (130-400)
[2016-05-22] MEDS: LOVENOX SUBQ SCH (06:36)
[2016-05-22] MEDS: LASIX IV SCH (06:36)
[2016-05-22] MEDS: NITROGLYCERIN TOP SCH ×3 (06:36→22:03)
[2016-05-22 08:38] LABS: CALCIUM 9.6 mg/dL (8.8-10.2); POTASSIUM 3.5 mmol/L (3.5-5.1)
[2016-05-22] MEDS: SODIUM CHLORIDE 0.9% INJ SCH (09:20)
[2016-05-22] MEDS: PROTONIX IV SCH (09:21)
[2016-05-22] MEDS: COREG PO SCH ×2 (09:21→22:03)
[2016-05-22] MEDS: ENTRESTO 49 MG-51 MG TABLET PO SCH ×2 (09:21→22:04)
--- NOTE | 2016-05-22 10:05 | PROGRESS NOTE ---
DATE: 05/21/2016 SUBJECTIVE: Mr. Tapia was evaluated. He had no shortness of breath. No chest pain. Symptoms were improving from the day previous. PHYSICAL EXAMINATION: Vital Signs: He is afebrile. Heart rate of 85, blood pressure 141/96. Intake and output: His Is and Os over that time period were -4.5 L. Generally: No acute distress. Cardiovascular: He is in a regular rate and rhythm with no murmurs. Extremities: No lower extremity edema. Chest: Examination is clear bilaterally. No increased work of breathing. Abdomen: His abdomen is soft and nontender. PERTINENT DATA: His proBNP is down to 5521. His BUN and creatinine are 14 and 1.2 respectively. His sodium is 139. His white count is 9.7. ASSESSMENT: Systolic heart failure. PLAN: We will continue with diuresis today. Entresto was adjusted as well. We will consider cardiac catheterization in the near future.
--- NOTE | 2016-05-22 11:05 | PROGRESS NOTE ---
DATE: 05/21/2016 SUBJECTIVE: Mr. Tapia reports he feels better today. He has reported improved breathing. PHYSICAL EXAMINATION: Vital signs: Afebrile. Heart rate of 86, blood pressure 148/99. His I's and O's are negative around 4400 mL over the course of the hospitalization. General: In no acute distress. Cardiovascular: He is in a regular rate and rhythm. He has no obvious murmurs. No S3. He has no lower extremity edema. Chest: Clear bilaterally. He has no increased work of breathing. Abdomen: Soft, nontender, nondistended. He has no obvious organomegaly. Skin Exam: Warm and dry throughout. PERTINENT DATA: His white count is 9.7, his hematocrit is 45, his platelet count is 219,000. Sodium 139, potassium 3.8, BUN 14, creatinine 1.2, yesterday they were 17 and 1.0. His magnesium level is 1.6. His proBNP is 5521 which is down from 8552. ASSESSMENT: Systolic heart failure. PLAN: We will continue on current medications. We have added in Entresto yesterday per his reduced heart failure. He is on Coreg at 6.25 b.i.d. Clonidine has been discontinued. We could consider adding back in his digoxin in the near future. His valsartan has been discontinued since he is on the Entresto. I will increase his Entresto up to the next dose considering that he was on relatively high dose of the valsartan at 320 mg daily. Otherwise we will continue his medications. Consideration for cardiac catheterization during this hospitalization.
--- NOTE | 2016-05-22 14:36 | PROGRESS NOTE ---
DATE: 05/22/2016 SUBJECTIVE: Mr. Tapia reports he is doing well today. He has no shortness of breath. He has had no episodes of chest pain this hospitalization. PHYSICAL EXAMINATION: Vital signs: He is afebrile. Heart rate 94, blood pressure 120/84. His I's and O's are negative roughly 5.5 L over the course of the hospitalization. Some poor recording of intake though. General: No acute distress. Cardiovascular: He is in a regular rate and rhythm. He has no obvious murmurs. No S3. No lower extremity edema. Chest: Clear bilaterally. No increased work of breathing. PERTINENT DATA: White count 10.3, hematocrit is 51, platelet count 255,000. Sodium 136, potassium 3.5, BUN 23, creatinine 1.4. ASSESSMENT: Acute systolic heart failure. PLAN: The patient has had medications adjusted. He has been diuresed. I stopped his Lasix given his trend up in his creatinine. We will check a BMP in the morning as well as a proBNP. He can likely be discharged in the morning and I will make arrangements for followup in the clinic. At that time, he can be set up with an outpatient cardiac catheterization. The patient is in agreement with this plan.
--- NOTE | 2016-05-22 16:02 | PROGRESS NOTE ---
DATE: 05/22/2016 SUBJECTIVE: Mr. Tapia feels better. He has this chest pain that he is suspicious is coming from his back, thoracic type pain. He has been evaluated by Dr. Campbell, neurosurgery, for thoracic radicular pain before and apparently has some bulge disks there. His enzymes are negative. Plan was to do a V/Q scan and then try to do a treadmill stress test since he has known coronary artery disease with some stents. OBJECTIVE: Vital signs: Temp 97.9 degrees, pulse 94, respirations 18, blood pressure 120/84. HEENT: Pupils are equal, round, reactive. Respiratory: Lungs are clear in all lung be. Cardiovascular: Regular rhythm and rate without murmur or S3. Abdomen: Soft. Skin: Warm and dry. Intake and output: Urine output 775 mL. LAB: White count 10,330, hematocrit 51, and platelet count 255,000. Sodium 136, potassium 3.5, chloride 94, BUN 23, creatinine 1.4. Troponin less than 0.01. ProBNP was 5,521. ASSESSMENT AND PLAN: 1. Atrial fibrillation, paroxysmal, with rapid ventricular response. Would like to encourage him to stay on the Eliquis probably daily. His CHADS score is, I think, a 6. 2. Systolic heart failure exacerbation. A new echo showed an ejection fraction 26%. So continue diuresis. Volume status looks better, better compensation. 3. Benign prostatic hypertrophy. 4. Hypertension. 5. Chest pain. Suspect this is probably thoracic radicular pain but we are obligated to make sure he is not having active coronary insufficiency. Dr. Campbell is following.
[2016-05-23] MEDS: LOVENOX SUBQ SCH ×2 (05:15→06:22)
[2016-05-23] MEDS: NITROGLYCERIN TOP SCH ×3 (05:15→14:07)
[2016-05-23 06:24] LABS: CALCIUM 9.2 mg/dL (8.8-10.2); POTASSIUM 3.5 mmol/L (3.5-5.1)
[2016-05-23] MEDS: SODIUM CHLORIDE 0.9% INJ SCH (08:20)
[2016-05-23] MEDS: ENTRESTO 49 MG-51 MG TABLET PO SCH (08:20)
[2016-05-23] MEDS: COREG PO SCH (08:20)
[2016-05-23] MEDS: PROTONIX IV SCH (08:20)
--- NOTE | 2016-05-23 10:32 | PROGRESS NOTE ---
DATE: 05/23/2016 SUBJECTIVE: Mr. Tapia states he is feeling much better. I think his hope is to go to rehab. He ate most of his breakfast. OBJECTIVE: Vital signs: Remains afebrile. Temperature 97.8 degrees, pulse 80, respirations 18, blood pressure 120/70. HEENT: Pupils were equal, round. Neck: CVP less than 6 cm. Lungs: Clear anterolateral. Cardiovascular: Regular rhythm and rate without murmur or S3. Abdomen: Soft. Skin: Warm and dry. Intake and output: Urine output is 850 mL. LAB: Reviewed from yesterday. Hematocrit is stable at 51. White count was 10,330, platelet count 255,000. Sodium 138, potassium 3.5, chloride 98, bicarb 27, BUN 25, creatinine 1.2. So creatinine has improved. Dr. Campbell is following. ASSESSMENT AND PLAN: 1. Acute systolic heart failure. Patient has had medications adjusted. He has been diuresed. Stopped the Lasix given the trend of his creatinine. Creatinine did come up some today and his proBNP is improved. Hopefully can go home. We will discuss and make sure cardiology is okay with that. He can have follow up in the clinic and set for an outpatient heart catheterization, if that is the plan. 2. Benign prostatic hypertrophy. 3. He did not have trouble with atrial fibrillation. I documented that in my note yesterday and that was my mistake. His presentation appears to be all consistent with just systolic heart failure. So I will discuss with Dr. Campbell, look over his orders, and see if he is ready to go home. Once again, he did not have any atrial fibrillation and that was incorrect in my note. He had what appeared to be acute systolic heart failure with pulmonary edema and I think if it is okay with cardiology he can go home and set up for a heart catheterization at some point as an outpatient. MEDICATIONS: In looking over his list of medications, continue his Coreg 6.25 mg twice a day, valsartan, 1 b.i.d.
--- NOTE | 2016-05-23 12:40 | PROGRESS NOTE ---
DATE: 05/23/2016 SUBJECTIVE: Mr. Tapia reports he is doing well. His breathing has been relatively stable. He has no chest discomfort presently. PHYSICAL EXAMINATION: Vital Signs: He is afebrile. His heart rate is in the 80s to 90s. Blood pressure 95/72. General: He seems to be tolerating his medications quite well. His I's and O's continue to be somewhat negative, but he seems to have poor recording of them recently. Generally he is no acute distress. Cardiovascular: He is in a regular rate and rhythm. He has no obvious murmurs. He has no S3, no lower extremity edema. Chest: Clear bilaterally. No increased work of breathing. Abdomen: Soft, nontender, nondistended. He has no obvious organomegaly. Skin: Exam is warm and dry throughout. PERTINENT DATA: Sodium is 138. Potassium is 3.5. BUN 25, creatinine 1.2. His proBNP today is 872, which is down from 8552 on presentation. ASSESSMENT: Acute systolic heart failure. PLAN: Patient is on carvedilol 6.25 mg b.i.d. along with Entresto. He seems to be well controlled and euvolemic hat this point. I would have him follow up with Dr. Cordero on an outpatient basis. We will have him contact the office. We will give him a card for Entresto to allow him to have 30 days of the medicine for free.
[2016-05-23 16:26] VITALS: BP 116/92
--- NOTE | 2016-05-23 18:22 | DISCHARGE SUMMARY ---
ADMISSION DATE: 05/20/2016 DISCHARGE DATE: 05/23/2016 HISTORY: He presented with shortness of breath on 05/20/2016, also nausea and vomiting reportedly. He had been short of breath for about a week, cough productive of green sputum and occasional nausea, chronic issues with nausea and dysphagia sounds like he had secondary to hiatal hernia which was not amenable to repair so he does have a lot of trouble with gastroesophageal reflux. He had myalgias and was seen by his primary care physician Dr. Gómez Maldonado about 3 days ago before admission and was started on erythromycin and Tessalon Perles. He was seen at [facility] yesterday thought to have pneumonia, and put on Levaquin and steroids but did not improve. Workup was more consistent with congestive heart failure exacerbation which is not established diagnosis with him, but in any case he had an abnormal stress test in 2014. He did not get follow up catheter at least at our facility. I think he was to due to have a heart catheterization but never went through with the procedure. This was in June so it was not clear at this point what his cardiac function is although based on perfusion scan, the EF was intact and normal (2 years ago). Complains of nausea and vomiting, and again this apparently is chronic complaint. Chest x- ray scans showed bilateral pleural effusions and elevated BNP. He does report some dyspnea on exertion and was admitted for congestive heart failure exacerbation. PAST MEDICAL HISTORY: 1. Hypertension. 2. Benign prostatic hypertrophy. 3. Possible heart failure. He is on digoxin. 4. Atrial fibrillation. PAST SURGICAL HISTORY: He had a hernia repair. Abdominal hernia repair. SOCIAL HISTORY: No tobacco. He quit 20 years ago. The patient was admitted with pulmonary venous hypertension. Echocardiogram was performed on 04/30/2016. Right atrium mildly enlarged. There was mild tricuspid regurgitation. Systolic pressure right ventricular systolic pressure is 35. Normal RV size. Mild reduction in RV systolic function. Mild pulmonic insufficiency. Moderate left atrial enlargement at 5.1 cm. No mitral prolapse. Moderate mitral regurgitation. Normal LV size and systolic dimension 4.5. Mild left ventricular hypertrophy with posterior and intraventricular septal thickness 1.2 cm. Severely reduced LV function. Calculated EF was 26% global hypokinesis. Aortic valve opened well. No pericardial effusion. The patient was diuresed and seemed to feel much better breathing which was much more comfortable. He needs to have a heart catheterization at some point. The patient is on Coreg 6.25 mg b.i.d., Entresto seems to be well controlled. Euvolemic at this point. Follow up with Dr. Cordero on an outpatient basis. We plan to give him a card for Entresto with 30 days of medicine, and suspect they may want to schedule an outpatient heart catheterization so he will be discharged today.
== END 2016-05-23 17:00 | disposition home or self-care (01) | DRG 293 ==
LOC: ED 03:56 → EDIPHOLD 08:06 → 4N 05-21 11:46
PROVIDERS: ATTEND Emergency Medicine
DX: I11.0 Hypertensive heart disease with heart failure (principal); I27.2 Other secondary pulmonary hypertension; I48.2 Chronic atrial fibrillation; I50.23 Acute on chronic systolic (congestive) heart failure; K21.9 Gastro-esophageal reflux disease without esophagitis; K44.9 Diaphragmatic hernia without obstruction or gangrene; N40.0 Benign prostatic hyperplasia without lower urinary tract symptoms; I25.10 Atherosclerotic heart disease of native coronary artery without angina pectoris; R07.89 Other chest pain; Z87.891 Personal history of nicotine dependence; Z79.899 Other long term (current) drug therapy; Z79.82 Long term (current) use of aspirin; Z86.73 Personal history of transient ischemic attack (TIA), and cerebral infarction without residual deficits; Z82.49 Family history of ischemic heart disease and other diseases of the circulatory system; Z95.5 Presence of coronary angioplasty implant and graft
CPT/HCPCS: 71020; 71275; 80048; 80053; 82550; 83605; 83690; 83735; 83880; 84484; 85025; 85027; 85379; 85610; 85730; 93306; C9113; J1650; J1940; J2405; J3475; Q9967; S0164

== ENCOUNTER 2016-05-25 20:51 | Emergency (ER) | payer OTHER ==
[2016-05-25] MEDS ORDERED: ASPIRIN PO STA (21:07)
[2016-05-25 21:43] LABS: MANUAL DIFF NEEDED? NO
[2016-05-25 21:55] LABS: BASO% 0.6 % (0.0-0.8); EOS% 1.8 % (0.0-10.0); HEMOGLOBIN 18.4 g/dL (14.0-18.0); IMM GRAN# 0.02 X1000 (0.0-0.04); IMM GRAN% 0.2 % (0.0-0.5); LYMPH# 1.84 X1000 (1.2-3.4); LYMPH% 16.6 % (20.5-51.1); MCH 31.5 PG (27-31); MCHC 35.4 g/dL (33-37); MONO# 0.81 X1000 (0.11-0.59); MONO% 7.3 % (1.7-9.3); MPV 10.4 FL (7.4-10.4); NEUT% 73.5 % (42.2-75.2); PLT 240 X1000 (130-400); RBC 5.84 XMIL (4.7-6.1)
[2016-05-25 22:01] LABS: INR 1.13; PTT 25.9 Seconds (22.0-36.0)
[2016-05-25 22:14] LABS: AGAP 16; ALBUMIN 4.1 g/dL (3.5-5.0); ALKALINE PHOSPHATASE 86 U/L (32-122); BUN 22 mg/dL (8-22); CALCIUM 10.2 mg/dL (8.8-10.2); CHLORIDE 99 mmol/L (98-107); CK PROFILE 94 U/L (24-204); COSMO 283; GOT 35 U/L (10-34); GPT 38 U/L (10-44); POTASSIUM 4.6 mmol/L (3.5-5.1); SODIUM 139 mmol/L (136-145); TCO2 24 mmol/L (25-35); TOTAL BILIRUBIN 0.93 mg/dL (0.20-1.00); TOTAL PROTEIN 7.2 g/dL (6.3-8.3)
--- NOTE | 2016-05-25 22:45 | PROVIDER DOCUMENTATION ---
HPI-Respiratory General - General Source: family - History of Present Illness-Resp Severity in ED: reports: moderate Onset/Duration: reports: this afternoon Timing: reports: still present Associated Symptoms: reports: shortness of breath Similar Symptoms Previously?: Yes Recently seen or treated by another doctor?: Yes <Carrie Castillo - Last Filed: 05/25/16 22:51> <Tay Blandon - Last Filed: 05/26/16 00:20> - General Chief Complaint: General Adult Stated Complaint: CONSTIPATION, CANNOT URINATE, SOB Time Seen by Provider: 05/25/16 22:20 Allergies/Adverse Reactions: Patient Allergies Allergy/AdvReac Type Severity Reaction Status Date / Time codeine Allergy Mild RASH Verified 05/25/16 21:44 blood pressure pill Allergy Mild tachycardia Uncoded 05/25/16 21:44 Home Medications: Home Medication List Medication Instructions Recorded Confirmed Last Taken Type Omeprazole [Prilosec] 20 mg PO DAILY@0700 06/01/13 05/20/16 05/19/16 History Valsartan [Diovan] 320 mg PO DAILY 06/01/13 05/20/16 05/19/16 History Aspirin [Aspirin EC] 325 mg PO DAILY 05/22/14 05/20/16 05/19/16 History Clonidine [Catapres] 0.1 mg PO TID 05/22/14 05/20/16 05/19/16 History Digoxin [Lanoxin] 125 microgm PO DAILY 05/22/14 05/20/16 05/19/16 History Hydrochlorothiazide 25 mg PO DAILY #0 05/24/14 05/20/16 05/19/16 Rx Levofloxacin [Levaquin] 750 mg PO DAILY #10 tablet 05/19/16 05/20/16 05/19/16 Rx Prednisone [Deltasone] 20 mg PO DIRECTED #12 tablet 05/19/16 05/20/16 Rx Finasteride 5 mg PO DAILY 05/20/16 05/20/16 05/19/16 History Ipratropium/Albuterol INH 2 puff INH 4XDAY 05/20/16 05/20/16 05/19/16 History [Combivent Respimat Inhaler] Magnesium Oxide [Magnesium] 400 mg PO DAILY 05/20/16 05/20/16 05/19/16 History Multivits,Ca,Min/Iron/FA/Lycop 1 each PO DAILY 05/20/16 05/20/16 05/19/16 History [Centrum Men's Tablet] Tamsulosin [Flomax] 0.4 mg PO DAILY 05/20/16 05/20/16 05/19/16 History Sacubitril/Valsartan [Entresto 49 1 each PO BID #60 tablet 05/23/16 Unknown Rx mg-51 mg Tablet] - History of Present Illness-Resp Nature of Presenting Problem: Daughter states that pt was seen on by Dr. Maldonado for shortness of breath. PT was put on 2 prescriptions and sent home with possible pneumonia. PT saw Dr. Maldonado again Sunday for worsening shortness of breath and sent to [place] to be admitted. PT went to [place] and was seen in the ED. PT had imaging done and sent home with 2 more prescriptions with a diagnosis of pneumonia. PT was then seen at [facility] on Sunday morning around 0300 for worsening shortness of breath. PT was admitted to the Hospital. Pt was told Sunday morning that he was in A-fib. PT was given Lasix for fluid around heart and in lungs. PT was d/c Sunday afternoon. Pt returns tonight due to not being able to urinate and have a bowel movement. Daughter states last BM was Sunday and last urination was this morning. PT also c/o increasing shortness of breath beginning this afternoon. (Carrie Castillo) Review of Systems - Adult - REVIEW OF SYSTEMS - ADULT Constitutional: denies: chills, fever Eyes: reports: no symptoms reported Ears, Nose, Mouth & Throat: reports: no symptoms reported Cardiovascular: denies: chest pain, palpitations Respiratory: reports: shortness of breath. denies: cough Gastrointestinal: reports: constipation. denies: abdominal pain, diarrhea, nausea, vomiting Genitourinary: reports: urinary retention. denies: dysuria, hematuria Musculoskeletal: reports: no symptoms reported Integumentary: reports: no symptoms reported Neurological: reports: no symptoms reported Psychiatric: reports: no symptoms reported Endocrine: reports: no symptoms reported Hematologic/Lymphatic: reports: no symptoms reported Allergic/Immunologic: reports: no symptoms reported All Other Systems: Reviewed and Negative <Carrie Castillo - Last Filed: 05/25/16 22:51> Past History - Adult - PAST MEDICAL HISTORY-ADULT Review of Records: reports: Nursing Assessment Review, Medications Reviewed Major Childhood Illnesses: reports: denies history Cardiovascular: reports: cardiac disease, CAD, HTN Respiratory: reports: denies history Gastrointestinal: reports: GERD, ulcer Obstetrical/Gynecological: reports: denies history Genitourinary: reports: denies history Musculoskeletal: reports: arthritis, chronic pain, other fractures Neurological: reports: denies history Endocrine/Immune: reports: denies history Other Conditions: reports: denies history - PRIOR SURGERIES/PROCEDURES Surgical/Procedure History: reports: colonoscopy, bowel surgery, orthopedic ( extremity) - IMMUNIZATION STATUS Childhood Immunizations: See Nurse Assessment Flu Vaccine: See Nurse Assessment - FAMILY HISTORY Family History: reviewed, not pertinent - SOCIAL HISTORY Smoking: non-smoker Substance Use: none/never Alcohol Use Frequency: occasionally <Carrie Castillo - Last Filed: 05/25/16 22:51> Physical Exam-General - PHYSICAL EXAM-ADULT Initial Vital Signs Reviewed: Yes - CONSTITUTIONAL General Appearance: alert, moderate distress - RESPIRATORY Respiratory: chest non-tender, lungs clear, respiratory distress - CARDIOVASCULAR Cardiovascular: normal peripheral pulses, irregularly irregular - GASTROINTESTINAL (ABDOMEN) Abdominal Exam: mass (palpable mass below umbilicus), other (firm lower ABD) - GENITOURINARY Rectal Exam: other (severely impacted) - SKIN Integumentary: normal color, normal turgor, warm/dry - PSYCHIATRIC Psych/Mental Status: normal mood/affect, normal thought content, normal thought process, oriented x 3 <Carrie Castillo - Last Filed: 05/25/16 22:51> Progress - EKG 1 Time of EKG reading by physician:: 21:02 EKG Read and Signed by:: Tay Blandon EKG Interpretation (*Must complete 3 of following elements*): Abnormal Rate: 98 Rhythm: atrial fibrillation QRS: LVH (voltage criteria) ST Wave: non-specific ST changes <Carrie Castillo - Last Filed: 05/25/16 22:51> - REASSESSMENT Reassessment #1 Time Reassessed: 00:16 (relief of abdominal distension) Status: improving Reassessment Comment: pATIENT had milk and molassas enema followed by gigantic BM with complete r <Tay Blandon - Last Filed: 05/26/16 00:20> - PLAN OF CARE/RESULTS Progress/Plan/Lab Results: Laboratory Tests 05/25/16 05/25/16 05/25/16 21:30 21:30 21:30 WBC 11.06 H RBC 5.84 Hgb 18.4 H Hct 52.0 MCV 89.0 MCH 31.5 H MCHC 35.4 RDW Std Deviation 13.8 Plt Count 240 MPV 10.4 Immature Gran % (Auto) 0.2 Neut % (Auto) 73.5 Lymph % (Auto) 16.6 L [place] % (Auto) 7.3 Eos % (Auto) 1.8 Baso % (Auto) 0.6 Immature Gran # (Auto) 0.02 Neut # (Auto) 8.12 H Lymph # (Auto) 1.84 [place] # (Auto) 0.81 H Eos # (Auto) 0.20 Baso # (Auto) 0.07 PT INR PTT (Actin FS) D-Dimer 0.36 Sodium 139 Potassium 4.6 Chloride 99 Carbon Dioxide 24 L Anion Gap 16 BUN 22 Creatinine 1.1 Estimated GFR/1.73 m2 > 60 BUN/Creatinine Ratio 20 Glucose 133 H Calculated Osmolality 283 Calcium 10.2 Magnesium 2.0 Total Bilirubin 0.93 AST 35 H ALT 38 Alkaline Phosphatase 86 Creatine Kinase 94 Troponin T Cfl-G-Ixwksbbshzj Pept Total Protein 7.2 Albumin 4.1 Globulin 3.1 Albumin/Globulin Ratio 1.3 05/25/16 05/25/16 05/25/16 21:30 21:30 21:30 WBC RBC Hgb Hct MCV MCH MCHC RDW Std Deviation Plt Count MPV Immature Gran % (Auto) Neut % (Auto) Lymph % (Auto) [place] % (Auto) Eos % (Auto) Baso % (Auto) Immature Gran # (Auto) Neut # (Auto) Lymph # (Auto) [place] # (Auto) Eos # (Auto) Baso # (Auto) PT 12.0 H INR 1.13 PTT (Actin FS) 25.9 D-Dimer Sodium Potassium Chloride Carbon Dioxide Anion Gap BUN Creatinine Estimated GFR/1.73 m2 BUN/Creatinine Ratio Glucose Calculated Osmolality Calcium Magnesium Total Bilirubin AST ALT Alkaline Phosphatase Creatine Kinase Troponin T < 0.010 Qur-A-Wowdmfgesgr Pept 1081 H Total Protein Albumin Globulin Albumin/Globulin Ratio Orders Category Date Time Status Cardiac Monitoring DIRECTED Care 05/25/16 21:07 Active Amor Cath Insertion ORDERED Care 05/25/16 22:40 Active Saline Loc NOW Care 05/25/16 21:07 Active CHEST-PORTABLE [RAD] Stat Exams 05/25/16 21:07 Taken KUB ABDOMEN [RAD] Stat Exams 05/25/16 21:30 Taken CBC WITH ELECTRONIC DIFF [HEME] Stat Lab 05/25/16 21:30 Completed CK PROFILE [SP CHEM] Stat Lab 05/25/16 21:30 Completed COMPREHENSIVE METABOLIC PANEL [CHEM] Stat Lab 05/25/16 21:30 Completed D-DIMER [CHEM] Stat Lab 05/25/16 21:30 Completed MAGNESIUM [CHEM] Stat Lab 05/25/16 21:30 Completed PRO B-NATRIURETIC PEPTIDE Stat Lab 05/25/16 21:30 Completed PROTIME WITH INR [COAG] Stat Lab 05/25/16 21:30 Completed PTT [COAG] Stat Lab 05/25/16 21:30 Completed TROPONIN T Stat Lab 05/25/16 21:30 Completed Aspirin Med 05/25/16 21:07 Discontinued 325 mg PO STAT STA Milk And Molasses Enema Med 05/25/16 22:52 Discontinued 1 each DC NOW ONE Milk And Molasses Enema Med 05/25/16 23:15 Discontinued 1 each DC NOW ONE EKG [EKG] Stat Ther 05/25/16 20:54 Ordered Vital Signs Pulse Resp BP Pulse Ox 05/25/16 21:43 129/105 100 05/25/16 20:56 44 L 21 140/115 90 L codeine Allergy (Mild, Verified 05/25/16 21:44) RASH blood pressure pill Allergy (Mild, Uncoded 05/25/16 21:44) tachycardia Omeprazole [Prilosec] 20 mg PO DAILY@0700 06/01/13 Valsartan [Diovan] 320 mg PO DAILY 06/01/13 Aspirin [Aspirin EC] 325 mg PO DAILY 05/22/14 Clonidine [Catapres] 0.1 mg PO TID 05/22/14 Digoxin [Lanoxin] 125 microgm PO DAILY 05/22/14 Hydrochlorothiazide 25 mg PO DAILY #0 05/24/14 Levofloxacin [Levaquin] 750 mg PO DAILY #10 tablet 05/19/16 Prednisone [Deltasone] 20 mg PO DIRECTED #12 tablet 05/19/16 Finasteride 5 mg PO DAILY 05/20/16 Ipratropium/Albuterol INH [Combivent Respimat Inhaler] 2 puff INH 4XDAY Magnesium Oxide [Magnesium] 400 mg PO DAILY 05/20/16 Multivits,Ca,Min/Iron/FA/Lycop [Centrum Men's Tablet] 1 each PO DAILY 05/20/16 Tamsulosin [Flomax] 0.4 mg PO DAILY 05/20/16 Sacubitril/Valsartan [Entresto 49 mg-51 mg Tablet] 1 each PO BID #60 tablet I&O 05/24/16 05/25/16 05/26/16 06:59 06:59 06:59 Output Total 300 Balance -300 Laboratory 05/25/16 05/25/16 05/25/16 21:30 21:30 21:30 WBC RBC Hgb Hct MCV MCH MCHC RDW Std Deviation Plt Count MPV Immature Gran % (Auto) Neut % (Auto) Lymph % (Auto) [place] % (Auto) Eos % (Auto) Baso % (Auto) Immature Gran # (Auto) Neut # (Auto) Lymph # (Auto) [place] # (Auto) Eos # (Auto) Baso # (Auto) PT 12.0 H INR 1.13 PTT (Actin FS) 25.9 D-Dimer Sodium Potassium Chloride Carbon Dioxide Anion Gap BUN Creatinine Estimated GFR/1.73 m2 BUN/Creatinine Ratio Glucose Calculated Osmolality Calcium Magnesium Total Bilirubin AST ALT Alkaline Phosphatase Creatine Kinase Troponin T < 0.010 Iwe-K-Rjtoectrldo Pept 1081 H Total Protein Albumin Globulin Albumin/Globulin Ratio 05/25/16 05/25/16 05/25/16 21:30 21:30 21:30 WBC 11.06 H RBC 5.84 Hgb 18.4 H Hct 52.0 MCV 89.0 MCH 31.5 H MCHC 35.4 RDW Std Deviation 13.8 Plt Count 240 MPV 10.4 Immature Gran % (Auto) 0.2 Neut % (Auto) 73.5 Lymph % (Auto) 16.6 L [place] % (Auto) 7.3 Eos % (Auto) 1.8 Baso % (Auto) 0.6 Immature Gran # (Auto) 0.02 Neut # (Auto) 8.12 H Lymph # (Auto) 1.84 [place] # (Auto) 0.81 H Eos # (Auto) 0.20 Baso # (Auto) 0.07 PT INR PTT (Actin FS) D-Dimer 0.36 Sodium 139 Potassium 4.6 Chloride 99 Carbon Dioxide 24 L Anion Gap 16 BUN 22 Creatinine 1.1 Estimated GFR/1.73 m2 > 60 BUN/Creatinine Ratio 20 Glucose 133 H Calculated Osmolality 283 Calcium 10.2 Magnesium 2.0 Total Bilirubin 0.93 AST 35 H ALT 38 Alkaline Phosphatase 86 Creatine Kinase 94 Troponin T Wim-B-Rcebpxjmbhl Pept Total Protein 7.2 Albumin 4.1 Globulin 3.1 Albumin/Globulin Ratio 1.3 (Tay Blandon) Departure <Carrie Castillo - Last Filed: 05/25/16 22:51> - Departure Time of Disposition Order: 00:19 Certified Medical Emergency: Emergent <Tay Blandon - Last Filed: 05/26/16 00:20> - Departure DIAGNOSIS: Acute urinary retention, Atrial fibrillation Constipation Qualifiers: Constipation type: other constipation type Qualified Code(s): K59.09 - Other constipation Disposition: HOME 01 Condition: Good Attestation - Scribe Verification/Attestation Scribe:: Carrie Castillo Acting as Scribe for:: Tay Blandon Scribe documention review:: This chart was documented by a scribe and accurately reflects the service the provider performed and the decisions made by the provider. <Carrie Castillo - Last Filed: 05/25/16 22:51> Physician Attestation - Physician Attestation I, the provider, attest to the following statement:: Tay Blandon Physician documentation Attestation:: This documentation recorded by the scribe accurately reflects the service I personally performed and the decisions made by me. <Carrie Castillo - Last Filed: 05/25/16 22:51>
[2016-05-25] MEDS ORDERED: MILK AND MOLASSES ENEMA PR ONE ×2 (22:52→23:15)
[2016-05-26 00:43] VITALS: BP 155/78
--- NOTE | 2016-05-26 06:02 | EKG Report ---
Test Performed on : 05/25/2016 9:02:30 PM Test Reason : SOB Blood Pressure : / mmHG Vent. Rate : 098 BPM Atrial Rate : 111 BPM P-R Int : 000 ms QRS Dur : 088 ms QT Int : 346 ms P-R-T Axes : 000 059 -17 degrees QTc Int : 441 ms Atrial fibrillation. Voltage criteria for left ventricular hypertrophy Nonspecific T wave abnormality Abnormal ECG When compared with ECG of 20-MAY-2016 04:14, Atrial fibrillation. has replaced Atrial flutter. T wave inversion now evident in Anterior leads Unconfirmed Result
--- NOTE | 2016-05-26 08:18 | Diag Imaging Result Document ---
PROCEDURE NAME: CHEST-PORTABLE - 05/25/2016 AP PORTABLE CHEST AT 2145 HOURS: FINDINGS: The lungs appear to be clear. The heart size is at the upper limits of normal. IMPRESSION: No acute disease.
--- NOTE | 2016-05-26 08:19 | Diag Imaging Result Document ---
PROCEDURE NAME: HARPREET ABDOMEN - 05/25/2016 KUB: FINDINGS: There is a large amount of stool in the rectum. There is gas in the small bowel and colon in a nonspecific pattern. There is no definite organomegaly or mass. The diaphragms are not included on the study. IMPRESSION: Constipation; otherwise, nonspecific abdomen.
== END 2016-05-26 00:48 | disposition home or self-care (01) ==
LOC: ED 20:51
DX: I48.91 Unspecified atrial fibrillation (principal); R33.9 Retention of urine, unspecified; K59.09 Other constipation; R06.02 Shortness of breath; I25.10 Atherosclerotic heart disease of native coronary artery without angina pectoris; I10 Essential (primary) hypertension; K21.9 Gastro-esophageal reflux disease without esophagitis; M19.90 Unspecified osteoarthritis, unspecified site; Z79.899 Other long term (current) drug therapy; G89.29 Other chronic pain; R94.31 Abnormal electrocardiogram [ECG] [EKG]; Z79.52 Long term (current) use of systemic steroids; Z79.82 Long term (current) use of aspirin
CPT/HCPCS: 71010; 74000; 80053; 82550; 83735; 83880; 84484; 85025; 85379; 85610; 85730; 93005

== ENCOUNTER 2018-09-02 11:50 | Inpatient (IN) ==
[2018-09-02] MEDS ORDERED: NS 1,000 ML IV ONE (12:36)
[2018-09-02] MEDS ORDERED: ZOFRAN IV ONE (12:36)
[2018-09-02] MEDS ORDERED: MORPHINE IV ONE ×2 (12:36→14:15)
[2018-09-02] MEDS ORDERED: NS 500 ML IV ONE (12:39)
--- NOTE | 2018-09-02 12:40 | PROVIDER DOCUMENTATION ---
HPI-Abdominal Pain/GI Problem - General Chief Complaint: Nausea/Vomiting Stated Complaint: VOMITING/ PROBLEM SLEEPING Time Seen by Provider: 09/02/18 12:10 Source: patient Allergies/Adverse Reactions: Patient Allergies Allergy/AdvReac Type Severity Reaction Status Date / Time codeine Allergy Mild RASH Verified 12/27/17 07:25 blood pressure pill Allergy Mild tachycardia Uncoded 12/27/17 07:25 Home Medications: Home Medication List Medication Instructions Recorded Confirmed Last Taken Type RX: Omeprazole [Prilosec] 20 mg PO DAILY@0700 06/01/13 09/02/18 12/27/17 05:30 History RX: Aspirin [Aspirin EC] 325 mg PO DAILY 05/22/14 09/02/18 12/25/17 History RX: Hydrochlorothiazide 25 mg PO DAILY #0 05/24/14 09/02/18 12/27/17 05:30 Rx RX: Finasteride 5 mg PO DAILY 05/20/16 09/02/18 12/27/17 05:30 History RX: Tamsulosin [Flomax] 0.4 mg PO DAILY 05/20/16 09/02/18 12/27/17 05:30 History RX: Atorvastatin Calcium 40 mg PO QHS 12/25/17 09/02/18 Unknown History RX: Carvedilol 25 mg PO BID 12/25/17 09/02/18 12/26/17 08:00 History RX: Sacubitril/Valsartan [Entresto 1 each PO BID 12/25/17 09/02/18 12/27/17 05:30 History 49 mg-51 mg Tablet] Multivitamin/Iron/Folic Acid 1 ea PO DAILY 09/02/18 09/02/18 Unknown History [Centrum Adults Tablet] RX: Digoxin 125 mcg PO DAILY 09/02/18 09/02/18 Unknown History RX: Magnesium 250 mg PO DAILY 09/02/18 09/02/18 Unknown History - History of Present Illness-ABD Nature of Presenting Problems: Patient is a 72 yowm who complains of generalized abdominal pain and distention associated with n/v since yesterday at 1700. Denies fever, diarrhea or any other symptoms. He is non-toxic in appearance. Associated Symptoms: denies: fatigue, fever/chills, genitourinary problems, shortness of breath Last BM: 24 hours ago Dark Stools Present?: reports: none noticed Rectal Bleeding: reports: none Review of Systems - Adult - REVIEW OF SYSTEMS - ADULT Constitutional: reports: no symptoms reported Eyes: reports: no symptoms reported Ears, Nose, Mouth & Throat: reports: no symptoms reported Cardiovascular: reports: no symptoms reported Respiratory: reports: no symptoms reported Gastrointestinal: reports: see HPI, abdominal pain, nausea, vomiting Genitourinary: reports: no symptoms reported Musculoskeletal: reports: no symptoms reported Integumentary: reports: no symptoms reported Neurological: reports: no symptoms reported Psychiatric: reports: no symptoms reported Endocrine: reports: no symptoms reported Hematologic/Lymphatic: reports: no symptoms reported Allergic/Immunologic: reports: no symptoms reported All Other Systems: Reviewed and Negative Past History - Adult - PAST MEDICAL HISTORY-ADULT Review of Records: reports: Old Records Reviewed, Nursing Assessment Review, Medications Reviewed, Social history reviewed & non-contributory. Major Childhood Illnesses: reports: denies history Cardiovascular: reports: cardiac disease, CAD, CHF, HTN Respiratory: reports: denies history Gastrointestinal: reports: GERD, ulcer Obstetrical/Gynecological: reports: denies history Genitourinary: reports: denies history Musculoskeletal: reports: arthritis, chronic pain, other fractures Neurological: reports: denies history Endocrine/Immune: reports: denies history Other Conditions: reports: denies history - PRIOR SURGERIES/PROCEDURES Surgical/Procedure History: reports: colonoscopy, bowel surgery, orthopedic (extremity) - IMMUNIZATION STATUS Childhood Immunizations: See Nurse Assessment Flu Vaccine: See Nurse Assessment - FAMILY HISTORY Family History: reviewed, not pertinent - SOCIAL HISTORY Smoking: non-smoker Physical Exam-General - PHYSICAL EXAM-ADULT Initial Vital Signs Reviewed: Yes - CONSTITUTIONAL General Appearance: alert, no apparent distress. negative: lethargic, slow to respond - EYES Eyes: pink conjunctivae - HEAD, EARS, NOSE, MOUTH & THROAT HENMT: normocephalic/atraumatic, moist mucous membranes - NECK Neck: full range of motion, supple, normal inspection - RESPIRATORY Respiratory: chest non-tender, lungs clear, normal breath sounds, no pleuratic chest pain, no respiratory distress, no accessory muscle use - CARDIOVASCULAR Cardiovascular: normal peripheral pulses, regular rate, rhythm, no edema, no gallop, no JVD, no murmur - GASTROINTESTINAL (ABDOMEN) Abdominal Exam: abnormal bowel sounds (No bowel sounds auscultated), distended, tenderness (Moderate diffuse) - MUSCULOSKELETAL Back Exam: normal inspection Extremity: normal range of motion, non-tender, normal inspection - SKIN Integumentary: normal color, warm/dry. negative: cyanosis, diaphoresis, jaundice, mottled, pallor - NEUROLOGIC Neurologic: grossly normal, no motor/sensory deficits - PSYCHIATRIC Psych/Mental Status: normal mood/affect, normal thought content, normal thought process, oriented x 3 Progress - PLAN OF CARE/RESULTS Progress/Plan/Lab Results: Vital Signs - 8 hr 09/02/18 11:54 Temperature 97.3 F L Pulse Rate 82 Respiratory Rate 18 Blood Pressure 191/109 O2 Sat by Pulse Oximetry 96 Orders Category Date Time Status Saline Loc DIRECTED Care 09/02/18 12:26 Active NPO Diet 09/02/18 12:[address] ABD/PELVIS W/IV CONT ONLY [CT] Stat Exams 09/02/18 12:36 Ordered AMYLASE [CHEM] Stat Lab 09/02/18 12:27 Received CBC WITH ELECTRONIC DIFF [HEME] Stat Lab 09/02/18 12:25 Results COMPREHENSIVE METABOLIC PANEL [CHEM] Stat Lab 09/02/18 12:27 Received LIPASE [CHEM] Stat Lab 09/02/18 12:27 Received Morphine Med 09/02/18 12:36 Once 4 mg IV NOW ONE Ns 1000 ml IV Bolus X1 Med 09/02/18 12:36 Ordered 0.9% Sodium Chloride Inj [Ns] 1,000 ml IV 999 mls/hr Ondansetron [Zofran] Med 09/02/18 12:36 Once 4 mg IV NOW ONE EKG [EKG] Stat Ther 09/02/18 12:36 Ordered 1410- On-call surgeon paged. Reassessed pt, he is aware of current plan and is in agreement. States he is still having pain, no other changes since previous assessment. Result Diagrams: 09/02/18 12:25 09/02/18 12:25 - EKG 1 Time of EKG reading by physician:: 12:10 EKG Read and Signed by:: Lida Niño EKG Interpretation (*Must complete 3 of following elements*): Abnormal Rate: 83 Rhythm: atrial fibrillation QRS: normal ST Wave: normal Prior EKG Comparison: unchanged from prior - CT/MRI 1 CT Study: Abdomen, Pelvis (IMPRESSION: High-grade small bowel obstruction. The transition point is at the anterior peritoneum in the midline, just below the umbilicus. This report was discussed with Pepper Harris on 09/02/2018 at 2:00 PM and was readback. This exam was performed using automated exposure control, adjustment of mA or kV according to patient size, and/or use of iterative reconstruction technique Electronically signed by Dominic Muñoz 09/02/2018 2:04 PM) - CONSULTS/PCP/HOSPITALIST Notification #1 *Consult/PCP/Hospitalist*: Dr. Kee Time Discussed: 14:17 Reason/Comments: SBO Consult Disposition: Admit ( states to admit to [facility], insert NG tube, and he will see pt after clinic. CT results reviewed.) #2 Consult: JUSTIN Palma SENIOR DIRECTOR INSIGHT Time Discussed: 14:10 Reason/Comments: admission-SBO Consult Disposition: Admit Departure - Departure Date of Disposition Decision: 09/02/18 Time of Disposition Decision: 14:10 DIAGNOSIS: SBO (small bowel obstruction) Abdominal pain Qualifiers: Abdominal location: unspecified location Qualified Code(s): R10.9 - Unspecified abdominal pain Vomiting Qualifiers: Vomiting type: unspecified Vomiting Intractability: non-intractable Nausea presence: with nausea Qualified Code(s): R11.2 - Nausea with vomiting, unspecified Disposition: ADMITTED INPATIENT 09 Certified Medical Emergency: Emergent Condition: Serious Referrals and Follow-Ups: Gómez Maldonado MD [Primary Care Provider] - - Critical Care Note This patient required my direct & personal management of CC.: No Attestation - Physician/ GREGG Attestation Patient care was provided by Advanced Practice Provider:: Yes Advanced Practice Provider:: Pepper Leroy Advanced Practice Provider documentation review:: The Mid-level provider documentation, treatment plan and medical decision making was reviewed by the physician who agrees with all treatment and medical decision making by the P. The physician spent face to face time with patient:: No Advanced Practice Provider documentation review:: Supervising physician onsite and consulted in the evaluation and care of this patient. The physician did not have a face to face encounter with the patient.
[2018-09-02 12:53] LABS: BASO# 0.02 X1000 (0.0-0.2); BASO% 0.2 % (0.0-0.8); EOS# 0.05 X1000 (0.0-0.7); EOS% 0.4 % (0.0-10.0); HEMATOCRIT 43.5 % (42.0-52.0); HEMOGLOBIN 16.1 g/dL (14.0-18.0); IMM GRAN# 0.03 X1000 (0.0-0.04); IMM GRAN% 0.2 % (0.0-0.5); LYMPH# 0.61 X1000 (1.2-3.4); LYMPH% 4.7 % (20.5-51.1); MCH 32.3 PG (27-31); MCV 87.3 FL (81-99); MONO# 0.74 X1000 (0.11-0.59); MONO% 5.7 % (1.7-9.3); MPV 10.1 FL (7.4-10.4); NEUT# 11.45 X1000 (1.4-6.5); NEUT% 88.8 % (42.2-75.2); PLT 210 X1000 (130-400); RBC 4.98 XMIL (4.7-6.1)
[2018-09-02 12:59] LABS: ESTIMATED GFR > 60
[2018-09-02 13:08] LABS: AGAP 13; ALBUMIN 4.9 g/dL (3.5-5.0); ALKALINE PHOSPHATASE 87 U/L (32-122); AMYLASE 47 U/L (20-200); BUN 11 mg/dL (8-22); CALCIUM 9.9 mg/dL (8.8-10.2); CHLORIDE 85 mmol/L (98-107); COSMO 265; GLUCOSE 146 mg/dL (70-104); GOT 33 U/L (10-34); GPT 19 U/L (10-44); LIPASE 22 U/L (13-60); SODIUM 131 mmol/L (136-145); TCO2 33 mmol/L (25-35); TOTAL BILIRUBIN 1.12 mg/dL (0.20-1.00); TOTAL PROTEIN 7.4 g/dL (6.3-8.3)
[2018-09-02 13:40] LABS: URINE SOURCE CLEAN CATCH
[2018-09-02 13:48] LABS: BILIRUBIN URINE NEGATIVE (NEGATIVE); BLOOD URINE NEGATIVE (NEGATIVE); COLOR YELLOW; GLUCOSE URINE NEGATIVE (NEGATIVE); KETONE URINE NEGATIVE (NEGATIVE); LEUKOCYTES URINE NEGATIVE (NEGATIVE); NITRITE URINE NEGATIVE (NEGATIVE); PROTEIN URINE 50 mg/dL (NEGATIVE); SP GRAVITY URINE 1.018; TURBIDITY URINE CLEAR (CLEAR); UROBILINOGEN URINE NORMAL (NORMAL)
[2018-09-02 13:51] LABS: UR EPITHELIAL CELLS <10 /HPF (<10); URINE BACTERIA NEGATIVE /HPF; URINE RBC <10 /HPF (<10); URINE WBC <10 /HPF (<10)
--- NOTE | 2018-09-02 14:06 | EKG Report ---
Test Performed on : 09/02/2018 12:08:24 PM Test Reason : SOB Blood Pressure : / mmHG Vent. Rate : 083 BPM Atrial Rate : 267 BPM P-R Int : 000 ms QRS Dur : 098 ms QT Int : 372 ms P-R-T Axes : 000 045 -26 degrees QTc Int : [address] & T wave abnormality, consider inferior ischemia Abnormal ECG When compared with ECG of 25-DEC-2017 10:44, Inverted T waves have replaced nonspecific T wave abnormality in Inferior leads Unconfirmed Result
--- NOTE | 2018-09-02 14:06 | Diag Imaging Result Doc [facility]360 ---
CT ABD/PELVIS W/IV CONT ONLY - 09/02/2018 INDICATION: diffuse abd pain/tenderness/distention,n/v COMPARISON: None FINDINGS: There is moderate cardiomegaly. No pericardial effusion. The lung bases demonstrate multifocal linear atelectasis. There is a high-grade mid-distal small bowel obstruction. The transition point is at the anterior midline centrally, just above the umbilicus. See image #85. There is probably some ventral hernia repair mesh just cephalad to this location. There is trace free fluid. No free air. The colon is completely collapsed. Abdominal organs are all normal. There are surgical clips at the gastroesophageal junction. Urinary bladder, prostate, and rectum are normal. There are moderate degenerative changes of the spine. No acute or suspicious bony lesion. IMPRESSION: High-grade small bowel obstruction. The transition point is at the anterior peritoneum in the midline, just below the umbilicus. This report was discussed with Pepper Harris on 09/02/2018 at 2:00 PM and was readback. This exam was performed using automated exposure control, adjustment of mA or kV according to patient size, and/or use of iterative reconstruction technique Electronically signed by Dominic Muñoz 09/02/2018 2:04 PM
--- NOTE | 2018-09-02 15:04 | Diag Imaging Result Doc PS360 ---
CHEST/ABD TUBE PLACEMENT - 09/02/2018 INDICATION: Tube Placement COMPARISON: 05/25/2016 FINDINGS: There is a nasogastric tube in good position in the fundus of the stomach. There are several severely gaseous distended loops of small bowel in the upper abdomen. IMPRESSION: Nasogastric tube in the fundus of the stomach. Electronically signed by Dominic Muñoz 09/02/2018 3:02 PM
[2018-09-02] MEDS ORDERED: SODIUM CHLORIDE 0.9% INJ ONE (16:25)
[2018-09-02] MEDS ORDERED: PHENERGAN IV ONE (16:25)
[2018-09-02] MEDS: NS 1,000 ML IV SCH (17:02)
[2018-09-02] MEDS: LOVENOX SUBQ SCH (17:30)
[2018-09-02] MEDS: DULCOLAX PR SCH ×2 (17:30→23:03)
--- NOTE | 2018-09-02 17:41 | HISTORY AND PHYSICAL ---
HISTORY OF PRESENT ILLNESS: This 72-year-old. Primary care physician I think is Dr. Gómez Maldonado. He has had surgeries before by Dr. Malachi Hernandez, but presented today. Yesterday started having abdominal discomfort and distention and it intensified. Brought to the emergency room today with nausea and finally got some relief with an NG tube and some IV Zofran but his exam and radiographic studies consistent with small bowel obstruction. Dr. Kee has seen him. He is going to start off with conservative therapy. He denies fever or chills or blood in his stool. No unusual abdominal pain early in the week. PAST MEDICAL HISTORY: 1. Hypertension. 2. Benign prostatic hypertrophy. 3. Possible heart failure. He is on digoxin. 4. Atrial fibrillation. PAST SURGICAL HISTORY: He has had 2 hernia repairs and abdominal hernia repair, I think one by Dr. Golden Cruz and one by Dr. Hernandez. SOCIAL HISTORY: No tobacco. He quit 20 years ago. He is a . ALLERGIES: Codeine. Reported there is a blood pressure medicine he does not tolerate, but when he does not remember what it was. REVIEW OF SYSTEMS: Constitutional: No report of weight gain or loss. No fever or chills. HEENT: No reported change in visual or hearing acuity. No recent fall or head or neck trauma. Neck: No neck pain or cervical adenopathy complained of. Respiratory: No increased work of breathing. Cardiovascular: No chest pain or tachy palpitation. GI: Abdominal bloating and nausea as reported above. No change in urinary habits. Endocrinologic/hemologic: Unremarkable. Neurologic: No focal complaints. PHYSICAL EXAMINATION: VITAL SIGNS: Temperature 97.3 degrees, pulse 78, respirations 18, blood pressure 155/82. Height is 5 feet 11 inches, weight is 180 pounds. HEENT: Pupils are equal. NECK: No distended neck veins. Neck was supple. No cervical adenopathy or supraclavicular adenopathy. LUNGS: Clear anterolateral. CARDIOVASCULAR: Regular rhythm and rate without murmur. S3. Carotid, radial, and femoral pulses 2+ and symmetrical. ABDOMEN: Distended. Diminished bowel sounds in all quadrants. No pedal edema. No sign of skin rashes. LABORATORY DATA: White count 12,900, hematocrit 43, platelet count 210,000. Sodium 131, potassium 4.0, chloride 85, BUN 11, creatinine 1.0, blood sugar 146, AST 33, ALT 19, alkaline phosphatase 87, albumin is 4.9. Urinalysis unremarkable. CT of abdomen and pelvis: High-grade small-bowel obstruction. A transition point is at the anterior peritoneum in the midline just below the umbilicus. ASSESSMENT AND PLAN: 1. Small-bowel obstruction. Continue NG tube. He seems to be more comfortable. Give him some IV fluids. I think we will run normal saline at 85 mL an hour. We will use Zofran for nausea as needed. 2. He has a history of chronic atrial fibrillation, rate is controlled. He will not be able to take his p.o. medicine. He is on Xarelto, so we will give him Lovenox and I think we can give it at lower doses. Actually I think we ought to give him 1 mg/kg and we will give it to him q.12 h. We will give full dose for now. 3. History of osteoarthritis. 4. Apparently, there is a history of congestive heart failure. He is on Entresto so I guess we will have to watch his fluid level. We will run it at 85 mL an hour for 8 hours and will cut it down to 50 every hour. 5. History of benign prostatic hypertrophy. He is on Flomax 0.4 mg daily. 6. History of hypercholesterolemia. He is on atorvastatin, which we will hold for now. 7. Note, with a benign prostatic hypertrophy, he was on finasteride and he was on tamsulosin and we are going to hold both of these for now. I am guessing he will have to have a Amor catheter. cc: Michelet Velazquez MD MTDD
--- NOTE | 2018-09-02 19:05 | GENERAL SURGERY CONSULTATION ---
DATE: 09/02/2018 REQUESTING PHYSICIAN: Hospitalist. REASON FOR CONSULTATION: Consult concerning bowel obstruction. HISTORY OF PRESENT ILLNESS: A 72-year-old male who presents with generalized abdominal pain and distention, starting yesterday around 5:00. He came to the emergency department and had a CT scan that showed bowel obstruction. NG tube placed which allowed for some decrease in his tenderness. He is now feeling better and not hurting. I was asked to weigh in an opinion. PAST MEDICAL HISTORY: Includes: 1. Congestive heart failure. 2. Coronary artery disease. 3. Hypertension. 4. History of atrial fib. 5. History of gastric ulcers. 6. History of chronic pain. 7. History of osteoarthritis. PAST SURGICAL HISTORY: Includes: 1. Previous ventral hernia repairs. 2. Bowel resections. 3. Colonoscopy. 4. Inguinal hernia repairs. 5. Orthopedic surgeries. HOME MEDICATIONS: Include: 1. Zofran. 2. [place]. 3. Entresto. 4. Meloxicam. 5. Carvedilol. 6. A statin. 7. Flomax. 8. Finasteride. 9. Hydrochlorothiazide. 10. Aspirin. 11. Prilosec. ALLERGIES: Codeine and unspecified blood pressure pill. FAMILY HISTORY: Reviewed with patient and noncontributory. SOCIAL HISTORY: Nonsmoker. REVIEW OF SYSTEMS: A full 10 point review of systems was obtained and negative except as specified in HPI. PHYSICAL EXAMINATION: Vital Signs: Patient is currently afebrile. His vital signs are stable. General: No acute distress. Alert, interactive, male, looks stated age. HEENT: Normocephalic, atraumatic. Pupils equal, round, and reactive to light. Mucous membranes moist. Oropharynx benign. Neck: Supple. Trachea midline. Cardiovascular: Regular rate and rhythm. Lungs: Grossly clear. Abdomen: Soft, nondistended. Previous surgical scars noted. No peritoneal signs. Extremities: Moves all extremities. Neurologic: Grossly intact. Skin: No signs of jaundice. Vascular: All extremities perfused. LABORATORY: White blood cell count is 12, hematocrit is 43, platelet count is 210,000. Remainder of labs reviewed. Of note, his bilirubin is slightly elevated at 1.12. His sodium is slightly decreased at 131. His BNP is over 1000. CT scan reviewed and noted above. ASSESSMENT AND PLAN: A 72-year-old with bowel obstruction. 1. Bowel obstruction. At this time, we will try to manage him nonoperatively with a nasogastric tube. He is already feeling better. We will see how he does. Will keep him at nothing by mouth. 2. Multiple medical comorbidities, currently being managed by the hospitalist service. Will defer to them. cc: Yang Kee MD
[2018-09-03 06:40] LABS: BASO# 0.03 X1000 (0.0-0.2); BASO% 0.5 % (0.0-0.8); EOS# 0.14 X1000 (0.0-0.7); EOS% 2.3 % (0.0-10.0); HEMATOCRIT 41.4 % (42.0-52.0); HEMOGLOBIN 15.3 g/dL (14.0-18.0); LYMPH# 0.96 X1000 (1.2-3.4); LYMPH% 15.8 % (20.5-51.1); MCH 32.8 PG (27-31); MCV 88.8 FL (81-99); MONO# 0.71 X1000 (0.11-0.59); MONO% 11.7 % (1.7-9.3); MPV 10.1 FL (7.4-10.4); NEUT# 4.24 X1000 (1.4-6.5); NEUT% 69.7 % (42.2-75.2); PLT 185 X1000 (130-400); RBC 4.66 XMIL (4.7-6.1); RDW 13.3 % (11.5-14.5); WBC 6.08 X1000 (4.8-10.8)
[2018-09-03 06:41] LABS: ESTIMATED GFR > 60
[2018-09-03 06:57] LABS: AGAP 11; ALB/GLOB RATIO 1.7; ALKALINE PHOSPHATASE 72 U/L (32-122); BUN 12 mg/dL (8-22); CALCIUM 9.2 mg/dL (8.8-10.2); CHLORIDE 89 mmol/L (98-107); COSMO 263; CREATININE 0.8 mg/dL (0.7-1.2); GLUCOSE 113 mg/dL (70-104); GOT 28 U/L (10-34); GPT 15 U/L (10-44); POTASSIUM 3.6 mmol/L (3.5-5.1); SODIUM 131 mmol/L (136-145); TCO2 31 mmol/L (25-35); TOTAL BILIRUBIN 1.03 mg/dL (0.20-1.00); TOTAL PROTEIN 6.4 g/dL (6.3-8.3)
[2018-09-03] MEDS: LOVENOX SUBQ SCH ×2 (07:03→17:58)
[2018-09-03] MEDS: DULCOLAX PR SCH ×4 (07:03→22:37)
--- NOTE | 2018-09-03 09:44 | Diag Imaging Result Doc PS360 ---
ABDOMEN FLAT/UPRIGHT - 09/03/2018 INDICATION: SBO COMPARISON: 09/02/2018 FINDINGS: Stable nasogastric tube in the stomach. Stable severely gaseous distended loops of small bowel consistent with small bowel obstruction. These measure up to 5 cm. No definite free air. No definite colon or rectal gas. There is excreted contrast in the urinary bladder from yesterday's CT. IMPRESSION: Small bowel obstruction. No change from prior. Electronically signed by Dominic Muñoz 09/03/2018 9:41 AM
[2018-09-03] MEDS: NS 1,000 ML IV SCH (11:55)
--- NOTE | 2018-09-03 12:54 | GENERAL SURGERY PROGRESS NOTE ---
DATE: 09/03/2018 SUBJECTIVE: The patient says he is feeling better. Nursing staff reports he has had a bowel movement. OBJECTIVE: Vital Signs: The patient is currently afebrile. Vital signs are stable. General: No acute distress. Alert, interactive. HEENT: Normocephalic, atraumatic. Pupils equal, round, reactive to light. Mucous membranes moist. Oropharynx benign. Neck: Supple. Trachea midline. Cardiovascular: Regular rate and rhythm. Lungs: Grossly clear. Abdomen: Still distended. Still somewhat tight. No peritoneal signs. Hypoactive bowel sounds. Extremities: Moves all extremities. Neurologic: Grossly intact. Skin: No signs of jaundice. Vascular: All extremities perfused. LABORATORY DATA: None this morning as of yet. IMAGING: None this morning as of yet. ASSESSMENT AND PLAN: A 72-year-old with multiple medical comorbidities with a small-bowel obstruction. 1. Small-bowel obstruction. At this time, given some improvement per the patient, will try to continue nonoperative management. Will follow up with a morning x-ray. 2. Multiple medical comorbidities. Currently being managed by the Hospitalist Service. cc: Yang Kee MD
[2018-09-03] MEDS: ZOFRAN IV PRN (13:31)
--- NOTE | 2018-09-03 22:04 | PROGRESS NOTE ---
DATE: 09/03/2018 SUBJECTIVE: The patient is resting comfortably in bed. Pressure 158/96, heart rate 88, respirations 20, O2 saturation 95% on room air. OBJECTIVE: General: This is an elderly male lying in bed in no acute distress. Heart: S1, S2 normal. Regular rate and rhythm. Lungs: Equal air entry bilaterally. No crackles. No rales. Abdomen: Positive bowel sounds. Soft, nontender, nondistended. Extremities: No edema. No cyanosis. Neuro: The patient is hard of hearing, but alert and oriented x3. LABS: Sodium 131, potassium 3.6, chloride 89, CO2 31, BUN 12, creatinine 0.8. White blood cell count 6, hemoglobin 15, hematocrit 41. ASSESSMENT AND PLAN: 1. Small bowel obstruction. Continue with nasogastric tube decompression. General Surgery is following. We will continue with IV fluids and monitor the patient's electrolytes closely. 2. Hypertension. We will start the patient on labetalol for blood pressure control since the patient is n.p.o. at this time. 3. Gastrointestinal prophylaxis. We will start the patient on IV Protonix. 4. Atrial fibrillation. The patient is rate controlled. 5. Chronic systolic congestive heart failure. Stable. cc: Katy Person MD MTDD
[2018-09-04] MEDS: ZOFRAN IV PRN ×2 (05:37→11:51)
[2018-09-04] MEDS: PROTONIX IV SCH (06:06)
[2018-09-04] MEDS: MORPHINE IV PRN ×2 (06:07→11:51)
[2018-09-04] MEDS: LOVENOX SUBQ SCH ×2 (06:07→19:25)
--- NOTE | 2018-09-04 06:19 | GENERAL SURGERY PROGRESS NOTE ---
DATE: 09/04/2018 SUBJECTIVE: Patient has had a bowel movement yesterday. He is passing gas. He has had more out of his NG tube, but now he is complaining of some nausea and cramping. OBJECTIVE: Vital Signs: Patient is currently afebrile. His vital signs are stable. His systolic and diastolic blood pressures were a little bit high. HEENT: Normocephalic, atraumatic. Pupils equal, round, reactive to light. Mucous membranes moist. Oropharynx benign. Neck: Supple. Trachea midline. Cardiovascular: Regular rate and rhythm. Lungs: Grossly clear. Abdomen: Distended. Some faint bowel sounds auscultated. No peritoneal signs. Extremities: Moves all extremities. Neurologic: Grossly intact. Skin: No signs of jaundice. Vascular: All extremities perfused. LABORATORY: Reviewed from yesterday. White blood cell count is 6, which is down from 12, hematocrit 41, platelet count 185,000. IMAGING: From yesterday reviewed, still shows partial small-bowel obstruction. ASSESSMENT AND PLAN: A 72-year-old with multiple medical comorbidities with small-bowel obstruction. 1. Small-bowel obstruction. At this time, he is showing some signs of improvement, although he is cramping right now. He has had more out of his NG tube, but he has passed gas. At this point, would like to follow up again with an x-ray. Would really like to try to hold off on surgery given his medical comorbidities, but may need to consider it if the patient does not show any signs of improvement in the near future. He does have pieces of mesh in his abdomen, which would make the surgery more complicated so, again, we will try to manage him nonoperatively if we can. 2. Multiple medical comorbidities. Currently being managed by the hospitalist service. cc: Yang Kee MD
[2018-09-04 07:00] LABS: MAGNESIUM 2.2 mg/dL (1.5-2.7); PHOSPHORUS 4.2 mg/dL (2.7-4.5)
[2018-09-04 07:11] LABS: HEMOGLOBIN 16.9 g/dL (14.0-18.0); MCH 32.1 PG (27-31); MCV 89.4 FL (81-99); MPV 10.8 FL (7.4-10.4); RBC 5.26 XMIL (4.7-6.1); RDW 13.3 % (11.5-14.5); WBC 4.49 X1000 (4.8-10.8)
--- NOTE | 2018-09-04 07:24 | Diag Imaging Result Doc PS360 ---
ABDOMEN FLAT/UPRIGHT - 09/04/2018 INDICATION: obstruction COMPARISON: 09/03/2018 FINDINGS: Stable nasogastric tube in good position. There is overall some decrease in the abnormally dilated small bowel loops. There is also a tiny amount of rectal gas. IMPRESSION: Slight improvement from prior. Electronically signed by Dominic Muñoz 09/04/2018 7:22 AM
[2018-09-04 07:27] LABS: AGAP 15; ALB/GLOB RATIO 1.3; ALBUMIN 4.3 g/dL (3.5-5.0); ALKALINE PHOSPHATASE 77 U/L (32-122); BUN 19 mg/dL (8-22); CALCIUM 9.3 mg/dL (8.8-10.2); CHLORIDE 88 mmol/L (98-107); COSMO 272; CREATININE 0.9 mg/dL (0.7-1.2); ESTIMATED GFR > 60; GLUCOSE 117 mg/dL (70-104); GOT 32 U/L (10-34); GPT 16 U/L (10-44); POTASSIUM 3.4 mmol/L (3.5-5.1); SODIUM 134 mmol/L (136-145); TCO2 31 mmol/L (25-35); TOTAL PROTEIN 7.5 g/dL (6.3-8.3)
[2018-09-04] MEDS ORDERED: POTASSIUM CHLORIDE 60 MEQ in NS 500 ML IV ONE (07:49)
[2018-09-04] MEDS: NS 1,000 ML IV SCH (10:23)
[2018-09-04] MEDS ORDERED: LASIX IV ONE (17:44)
[2018-09-04] MEDS: DUONEB (A & A) INH SCH ×2 (18:24→21:39)
[2018-09-05] MEDS: DUONEB (A & A) INH SCH ×4 (03:37→21:25)
--- NOTE | 2018-09-05 03:55 | PROGRESS NOTE ---
DATE: 09/04/2018 SUBJECTIVE: The patient is resting comfortably in bed. No acute events noted overnight. OBJECTIVE: Vital Signs: Temperature 98.1 degrees, blood pressure 153/94, heart rate 111, respirations 18, O2 saturation 93% on room air. General: This is an elderly male, lying in bed in no acute distress. Heart: S1, S2 normal. Lungs: Equal air entry bilaterally. No crackles. No rales. Abdomen: Positive bowel sounds. Soft. Extremities: No edema, no cyanosis. Neurologic: The patient is alert and oriented x3. He is hard of hearing. DIAGNOSTIC STUDIES: White blood cell count 4.4, hemoglobin 16, hematocrit 47, platelets 216,000. Sodium 134, potassium 3.4, chloride 88, CO2 of 31, BUN 19, creatinine 0.9, glucose 117, AST 32, ALT 16, alkaline phosphatase 77. Abdominal x-ray shows slight improvement in the dilated small bowel loops. ASSESSMENT AND PLAN: 1. Small bowel obstruction. Continue with nasogastric tube decompression. General Surgery is following. Continue with antibiotics. 2. Hypokalemia. We will replace the patient's potassium. 3. Atrial fibrillation. The patient is currently rate controlled. 4. Chronic systolic congestive heart failure. Stable. 5. Gastrointestinal prophylaxis. Continue on IV Protonix. cc: Katy Person MD
--- NOTE | 2018-09-05 05:50 | GENERAL SURGERY PROGRESS NOTE ---
DATE: 09/05/2018 SUBJECTIVE: Patient seems to be doing okay. Nursing staff reports no major issues. He did have a bowel movement yesterday. OBJECTIVE: Vital Signs: Patient is currently afebrile. Vital signs have been stable. General: No acute distress. Resting comfortably. HEENT: Normocephalic, atraumatic. Pupils equal, round, reactive to light. Mucous membranes moist. Oropharynx benign. Neck: Supple. Trachea midline. Cardiovascular: Regular rate and rhythm. Lungs: Grossly clear. Abdomen: Soft. Less distended than yesterday. No peritoneal signs. Extremities: Moves all extremities. Neurologic: Grossly intact. Skin: No signs of jaundice. Vascular: All extremities perfused. LABORATORY: Reviewed from yesterday, white blood cell count 4, hematocrit 47, platelet count 216,000. Remainder of labs reviewed. Electrolytes: Sodium is 134, potassium is 3.4. Bilirubin is 1.4. ASSESSMENT AND PLAN: A 72-year-old with small-bowel obstruction. 1. Small-bowel obstruction. At this time, he seems to be making some improvement. His abdominal film from yesterday was reviewed and seems to be slightly improved. He clinically is less distended and softer than he was, so we will continue nonoperative management. We will keep the nasogastric tube and follow up with a.m. x-ray. If the a.m. x-ray still shows improvement, may consider clamping the nasogastric tube, but otherwise continue supportive care. 2. Multiple medical comorbidities currently being managed by the hospitalist service. cc: Yang Kee MD
[2018-09-05 06:41] LABS: HEMATOCRIT 40.4 % (42.0-52.0); HEMOGLOBIN 14.1 g/dL (14.0-18.0); MCH 32.5 PG (27-31); MCHC 34.9 g/dL (33-37); MCV 93.1 FL (81-99); MPV 10.1 FL (7.4-10.4); RBC 4.34 XMIL (4.7-6.1); RDW 13.6 % (11.5-14.5); WBC 3.94 X1000 (4.8-10.8)
[2018-09-05] MEDS: LOVENOX SUBQ SCH ×2 (06:51→20:03)
[2018-09-05 07:01] LABS: AGAP 11; ALBUMIN 3.6 g/dL (3.5-5.0); BUN 19 mg/dL (8-22); CALCIUM 8.4 mg/dL (8.8-10.2); CHLORIDE 96 mmol/L (98-107); COSMO 274; ESTIMATED GFR > 60; GLUCOSE 101 mg/dL (70-104); PHOSPHORUS 2.1 mg/dL (2.7-4.5); POTASSIUM 3.7 mmol/L (3.5-5.1); SODIUM 136 mmol/L (136-145); TCO2 29 mmol/L (25-35)
--- NOTE | 2018-09-05 07:23 | Diag Imaging Result Doc PS360 ---
EXAM: ABDOMEN FLAT/UPRIGHT 09/05/2018 HISTORY: small bowel obstruction TECHNIQUE: Flat and upright abdomen COMMENT: There is gas throughout the colon and small bowel. There is an NG tube with its tip at the level of the cardia of the stomach. This is apparently been withdrawn somewhat since the previous study of 09/04/2018. The degree of dilatation of the small bowel loops has diminished somewhat since the previous study although there is more extensive gaseous dilatation and more colonic gas than on the previous study. IMPRESSION: Improved small bowel obstruction. The possibility of ileus cannot be excluded. Electronically signed by Uziel Mcmahon 09/05/2018 7:20 AM
[2018-09-05] MEDS ORDERED: SODIUM PHOSPHATE 40 MMOL in NS 250 ML IV ONE (07:33)
[2018-09-05] MEDS ORDERED: LASIX IV SCH (09:00)
[2018-09-05] MEDS: PROTONIX IV SCH (09:19)
--- NOTE | 2018-09-05 14:10 | Diag Imaging Result Doc PS360 ---
CT THORAX W/O CONTRAST - 09/05/2018 INDICATION: pneumonia COMPARISON: Prior chest x-ray 09/02/2018 FINDINGS: There is a nasogastric tube in good position in the stomach. There is some dense material wrapped around the cardia of the stomach. Otherwise upper abdominal images appear unremarkable. There is mild cardiomegaly. There is significant calcified coronary artery disease. There is a small right pleural effusion, about 1.3 cm in depth. There is some linear atelectasis in the lung bases. No infiltrates. There is moderate COPD. Bones are intact. IMPRESSION: 1. Small right pleural effusion. 2. Bilateral linear atelectasis in the lung bases. 3. Cardiomegaly. 4. COPD. This exam was performed using automated exposure control, adjustment of mA or kV according to patient size, and/or use of iterative reconstruction technique Electronically signed by Dominic Muñoz 09/05/2018 2:08 PM
[2018-09-05] MEDS: NS 1,000 ML IV SCH (19:34)
[2018-09-05] MEDS: ROCEPHIN 1 GM in NS 50 ML IV SCH (19:34)
[2018-09-06] MEDS: DUONEB (A & A) INH SCH ×4 (03:15→23:40)
--- NOTE | 2018-09-06 03:54 | PROGRESS NOTE ---
DATE: 09/05/2018 SUBJECTIVE: The patient states that he has been coughing up greenish-colored sputum and he feels short of breath. OBJECTIVE: Vital Signs: Temperature 98.6 degrees, blood pressure 139/68, heart rate 93, respirations 20, O2 saturation 95% on room air. General: This is a chronically ill-appearing elderly male lying in bed in no acute distress. Heart: S1, S2, normal. Lungs: Equal air entry bilaterally. No wheezing. No rales. Abdomen: Positive bowel sounds. Soft, nontender, nondistended. Extremities: No edema, no cyanosis. Neurologic: The patient is alert and oriented x4. LABS: White blood cell count 3.9, hemoglobin 14, hematocrit 40, platelets 158,000. Sodium 136, potassium 3.7, chloride 96, CO2 29, BUN 19, creatinine 1, glucose 101, phosphorus 2.1, magnesium 1.9, calcium 8.4. CT of the chest shows a small right pleural effusion, chronic obstructive pulmonary disease. ASSESSMENT AND PLAN: 1. Small bowel obstruction, slowly improving. The patient remains on nasogastric tube decompression. Management as per the general surgeon. 2. Acute bronchitis. Will start the patient on Rocephin. 3. Atrial fibrillation. The patient is rate controlled. The patient is on full dose Lovenox at this time. 4. Hypophosphatemia. Will replace the patient's phosphorus. 5. Chronic obstructive pulmonary disease. Continue with bronchodilator therapy. 6. Deep vein thrombosis prophylaxis. The patient is on Lovenox. cc: Katy Person MD
[2018-09-06] MEDS: LOVENOX SUBQ SCH ×2 (06:23→18:31)
[2018-09-06] MEDS: PROTONIX IV SCH (06:23)
[2018-09-06] MEDS: SODIUM CHLORIDE 0.9% INJ SCH (06:23)
[2018-09-06 06:57] LABS: AGAP 13; ALBUMIN 3.6 g/dL (3.5-5.0); BUN 16 mg/dL (8-22); CALCIUM 8.4 mg/dL (8.8-10.2); CHLORIDE 98 mmol/L (98-107); COSMO 277; CREATININE 0.7 mg/dL (0.7-1.2); ESTIMATED GFR > 60; GLUCOSE 96 mg/dL (70-104); MAGNESIUM 1.9 mg/dL (1.5-2.7); PHOSPHORUS 2.2 mg/dL (2.7-4.5); POTASSIUM 2.9 mmol/L (3.5-5.1); SODIUM 138 mmol/L (136-145); TCO2 27 mmol/L (25-35)
[2018-09-06 07:06] LABS: HEMOGLOBIN 14.3 g/dL (14.0-18.0); MCH 32.7 PG (27-31); MCHC 35.8 g/dL (33-37); MCV 91.5 FL (81-99); MPV 10.1 FL (7.4-10.4); RBC 4.37 XMIL (4.7-6.1); RDW 13.1 % (11.5-14.5); WBC 5.1 X1000 (4.8-10.8)
[2018-09-06] MEDS ORDERED: POTASSIUM PHOSPHATE 40 MMOL in NS 250 ML IV ONE (08:18)
--- NOTE | 2018-09-06 09:15 | Diag Imaging Result Doc PS360 ---
EXAM: ABDOMEN FLAT/UPRIGHT HISTORY: obstruction TECHNIQUE: Flat and upright, two views COMPARISON: 09/05/2018 FINDINGS: There are air distended loops of bowel throughout the abdomen. The majority of this is small bowel although a portion appears to be colon. These are fairly similar to the prior exam. There is a nasogastric tube coiled in the stomach. No organomegaly. Prominent degenerative changes in the lumbar spine. Several surgical coils overlie the pelvis. IMPRESSION: Persistent ileus versus obstruction. Electronically signed by Edmar Winchester 09/06/2018 9:13 AM
[2018-09-06] MEDS: MUCOMYST 20% INH SCH ×2 (09:26→23:40)
--- NOTE | 2018-09-06 10:04 | GENERAL SURGERY PROGRESS NOTE ---
DATE: 09/06/2018 SUBJECTIVE: Patient seems to be doing okay. He reports passing gas, having bowel movements. His abdominal film yesterday showed some improvement. OBJECTIVE: Vital Signs: Patient is currently afebrile. His vital signs are stable. General exam: No acute distress. HEENT: Normocephalic, atraumatic. Pupils equal, round, reactive to light. Mucous membranes moist. Oropharynx benign. Neck: Supple. Trachea midline. Cardiovascular: Regular rate and rhythm. Lungs: Grossly clear. Abdomen: Soft, nondistended, nontender. Some faint bowel sounds auscultated. Extremities: Moves all extremities. Neurologic: Grossly intact. Skin: No signs of jaundice. Vascular: All extremities perfused. LABORATORY: Reviewed from yesterday: White blood cell count is 3, hematocrit 40. Remainder of labs reviewed. ASSESSMENT/PLAN: A 72-year-old with partial small bowel obstruction. 1. Partial small bowel obstruction. At this time, we will clamp his nasogastric tube. He is showing some improvement. His x-ray yesterday did show some improvement. We will give him sips of clears, but do not want to remove the nasogastric tube until we see how he does. 2. Leukopenia. At this point, his white blood cell count has dropped down to 3. There is some concern about bronchitis. May need to continue monitoring this. 3. Multiple medical comorbidities currently being managed by the Hospitalist Service. cc: Yang Kee MD
[2018-09-06] MEDS: NS 1,000 ML IV SCH ×2 (11:46→16:43)
[2018-09-06] MEDS: ROCEPHIN 1 GM in NS 50 ML IV SCH (16:44)
--- NOTE | 2018-09-06 17:11 | PROGRESS NOTE ---
DATE: 09/06/2018 SUBJECTIVE: The patient is resting comfortably in bed. He has been allowed to have sips of water and his NG tube is clamped. OBJECTIVE: Vital Signs: Temperature 97.6 degrees, blood pressure 179/89, heart rate 97, respirations 22, O2 saturations 97% on room air. General: This is an elderly male lying in bed in no acute distress. Heart: S1, S2 normal. Tachycardic. Lungs: Equal air entry bilaterally. No crackles. No rales. Abdomen: Positive bowel sounds. Soft, nontender, nondistended. Extremities: No edema, no cyanosis. Neuro: The patient is alert and oriented x4. LABS: Sodium 138, potassium 2.9, BUN 16, creatinine 0.7, hemoglobin 14, hematocrit 40, platelets 151,000, phosphorus 2.2. Abdominal x-ray reveals a persistent ileus. ASSESSMENT AND PLAN: 1. Small bowel obstruction. The patient is having regular bowel movements. His nasogastric tube was clamped this morning. Further management as per the general surgeon. 2. Acute bronchitis. Continue with Rocephin and bronchodilator therapy. 3. Hypophosphatemia. We will replace the patient's phosphorus. 4. Hypokalemia. Will replace the patient's potassium. 5. Atrial fibrillation. The patient is on full-dose Lovenox. We will continue to monitor the heart rate closely. 6. Chronic obstructive pulmonary disease. Continue bronchodilator therapy and supplemental oxygen. cc: Katy Person MD
[2018-09-07] MEDS: DUONEB (A & A) INH SCH ×3 (04:05→21:20)
[2018-09-07] MEDS: PROTONIX IV SCH ×2 (05:47→08:21)
[2018-09-07] MEDS: LOVENOX SUBQ SCH (05:48)
--- NOTE | 2018-09-07 06:46 | GENERAL SURGERY PROGRESS NOTE ---
DATE: 09/07/2018 SUBJECTIVE: Patient doing well. He did remove his nasogastric tube yesterday, but seems to be doing okay. He is still having bowel movements. The patient reports passing gas, not feeling sick to his stomach. OBJECTIVE: Vital Signs: Patient is currently afebrile. His vital signs are stable. General: No acute distress. HEENT: Normocephalic, atraumatic. Pupils equal, round, reactive to light. Mucous membranes moist. Oropharynx benign. Neck: Supple. Trachea midline. Cardiovascular: Regular rate and rhythm. Lungs: Grossly clear. Abdomen: Soft, a little bit distended. Some bowel sounds auscultated. No peritoneal signs. Extremities: Moves all extremities. Neurologic: Grossly intact. Skin: No signs of jaundice. Vascular: All extremities perfused. LABORATORY: None from this morning as of yet. Abdominal film from yesterday reviewed. ASSESSMENT AND PLAN: A 72-year-old with a bowel obstruction. 1. Bowel obstruction. At this time, he has made some clinical improvement. His NG tube is out. He has not been sick to his stomach. We will start him on some clear liquids and monitor how he does. 2. Multiple medical comorbidities to be managed by the hospitalist service. cc: Yang Kee MD
[2018-09-07 07:19] LABS: HEMATOCRIT 38.4 % (42.0-52.0); HEMOGLOBIN 13.8 g/dL (14.0-18.0); MCH 32.3 PG (27-31); MCHC 35.9 g/dL (33-37); MCV 89.9 FL (81-99); MPV 10.2 FL (7.4-10.4); RBC 4.27 XMIL (4.7-6.1); RDW 12.7 % (11.5-14.5); WBC 7.22 X1000 (4.8-10.8)
[2018-09-07 07:55] LABS: AGAP 11; ALBUMIN 3.4 g/dL (3.5-5.0); BUN 11 mg/dL (8-22); CALCIUM 8.5 mg/dL (8.8-10.2); CHLORIDE 97 mmol/L (98-107); COSMO 270; CREATININE 0.8 mg/dL (0.7-1.2); ESTIMATED GFR > 60; GLUCOSE 99 mg/dL (70-104); PHOSPHORUS 2.5 mg/dL (2.7-4.5); POTASSIUM 3.1 mmol/L (3.5-5.1); SODIUM 135 mmol/L (136-145); TCO2 27 mmol/L (25-35)
[2018-09-07] MEDS: NS 1,000 ML IV SCH (08:21)
[2018-09-07] MEDS ORDERED: MAGNESIUM SULFATE 2 GM/S.W.I. 2 GM/50 ML IVPB IV ONE (08:33)
[2018-09-07] MEDS ORDERED: KLOR-CON PO ONE (08:33)
--- NOTE | 2018-09-07 08:45 | Diag Imaging Result Doc PS360 ---
EXAM: FLAT/UPRIGHT ABD/1 VIEW CHEST HISTORY: obstruction TECHNIQUE: Flat and upright with chest, four views COMPARISON: 09/06/2018 FINDINGS: There is atelectasis in the right lung base. No infiltrates. No cardiomegaly. No free air beneath the diaphragm. There are multiple air distended loops of small bowel. There is air within the colon as well. No organomegaly. Mild scoliosis with prominent degenerative changes. IMPRESSION: Persistent ileus versus obstruction with no interval improvement. Electronically signed by Edmar Winchester 09/07/2018 8:42 AM
[2018-09-07] MEDS: MUCOMYST 20% INH SCH ×2 (10:06→21:20)
[2018-09-07] MEDS: ENTRESTO 49 MG-51 MG TABLET PO SCH ×2 (12:23→22:56)
[2018-09-07] MEDS: MAGNESIUM GLUCONATE PO SCH (12:24)
[2018-09-07] MEDS: PROSCAR PO SCH (12:26)
[2018-09-07] MEDS: HYDROCHLOROTHIAZIDE PO SCH (12:27)
[2018-09-07] MEDS: FLOMAX PO SCH (12:27)
[2018-09-07] MEDS: CENTRUM TABLET PO SCH (12:27)
[2018-09-07] MEDS: COREG PO SCH ×2 (12:28→22:56)
[2018-09-07] MEDS: ASPIRIN EC PO SCH (12:28)
--- NOTE | 2018-09-07 12:28 | PROGRESS NOTE ---
DATE: 09/07/2018 SUBJECTIVE: The patient is sitting up in a chair. His NG tube is out. He tolerated his breakfast without any difficulty. OBJECTIVE: Vital Signs: Temperature 97 degrees, blood pressure 158/105, heart rate 92, respirations 20, O2 saturation 97% on room air. General: This is a chronically ill-appearing male sitting in a chair in no acute distress. Heart: S1, S2 normal. Regular rate and rhythm. Lungs: Clear to auscultation bilaterally. Abdomen: Positive bowel sounds. Soft, nontender, nondistended. Extremities: No edema no cyanosis. Neurologic: The patient is alert and oriented x4. LABORATORY DATA: Sodium 135, potassium 3.1, chloride 97, CO2 27, BUN 11, creatinine 0.5, magnesium 1.8. ASSESSMENT AND PLAN: 1. Small bowel obstruction. This appears to be resolving. The patient is tolerating a liquid diet. Further management as per the general surgeon. 2. Uncontrolled hypertension. The patient's oral medications have been restarted now that he is no longer n.p.o. We will monitor the blood pressure closely. 3. Acute bronchitis. Continue on Rocephin and bronchodilator therapy. 4. Hypokalemia. We will replace the patient's potassium. 5. Atrial fibrillation. We will restart the patient's cardiac medications. 6. Chronic obstructive pulmonary disease. Continue bronchodilator therapy and supplemental oxygen. 7. Deep vein thrombosis prophylaxis. Continue on Lovenox. 8. Disposition. The patient has been advised to ambulate in the hallway with assistance. cc: Katy Person MD MTDD
[2018-09-07] MEDS: LANOXIN PO SCH (12:29)
[2018-09-07] MEDS: ROBITUSSIN-DM PO PRN (12:30)
[2018-09-07] MEDS: ROCEPHIN 1 GM in NS 50 ML IV SCH (18:18)
[2018-09-07] MEDS: LIPITOR PO SCH (22:56)
[2018-09-08] MEDS: DUONEB (A & A) INH SCH ×5 (05:09→21:00)
[2018-09-08] MEDS: SODIUM CHLORIDE 0.9% INJ SCH (06:36)
[2018-09-08] MEDS: PROTONIX IV SCH (06:36)
[2018-09-08 06:45] LABS: HEMATOCRIT 37.7 % (42.0-52.0); HEMOGLOBIN 13.6 g/dL (14.0-18.0); MCH 32.6 PG (27-31); MCHC 36.1 g/dL (33-37); MCV 90.4 FL (81-99); MPV 9.8 FL (7.4-10.4); RBC 4.17 XMIL (4.7-6.1); RDW 12.7 % (11.5-14.5); WBC 6.04 X1000 (4.8-10.8)
[2018-09-08] MEDS ORDERED: PRILOSEC PO SCH (07:00)
--- NOTE | 2018-09-08 07:13 | GENERAL SURGERY PROGRESS NOTE ---
DATE: 09/08/2018 SUBJECTIVE: Patient says he is doing okay. He has had bowel movements recorded but his x-rays yesterday still seemed to show a persistent ileus. OBJECTIVE: Vital Signs: The patient is currently afebrile. His vital signs are stable. General Examination: No acute distress. HEENT: Normocephalic, atraumatic. Pupils equal, round, reactive to light. Mucous membranes moist. Oropharynx benign. Neck: Supple. Trachea midline. Cardiovascular: Regular rate and rhythm. Lungs: Grossly clear. Abdomen: Soft, nontender, nondistended. Extremities: Moves all extremities. Neurologic: Grossly intact. Skin: No signs of jaundice. Vascular: All extremities perfused. Laboratory: Reviewed from yesterday. White blood cell count is normal. ASSESSMENT AND PLAN: A 72-year-old with a bowel obstruction. Bowel obstruction. At this time, we will keep him on his clear liquid diet but we will add Ensures. We will plan on doing a small bowel series tomorrow but otherwise continue nonoperative management. cc: Yang Kee MD
[2018-09-08 07:25] LABS: AGAP 10; ALBUMIN 3.3 g/dL (3.5-5.0); BUN 6 mg/dL (8-22); CALCIUM 8.2 mg/dL (8.8-10.2); CHLORIDE 102 mmol/L (98-107); COSMO 270; CREATININE 0.7 mg/dL (0.7-1.2); ESTIMATED GFR > 60; GLUCOSE 105 mg/dL (70-104); PHOSPHORUS 2.4 mg/dL (2.7-4.5); POTASSIUM 3.6 mmol/L (3.5-5.1); SODIUM 136 mmol/L (136-145); TCO2 24 mmol/L (25-35)
[2018-09-08] MEDS: MUCOMYST 20% INH SCH ×2 (10:14→21:00)
[2018-09-08] MEDS: LOVENOX SUBQ SCH (10:32)
[2018-09-08] MEDS: FLOMAX PO SCH (10:33)
[2018-09-08] MEDS: MAGNESIUM GLUCONATE PO SCH (10:33)
[2018-09-08] MEDS: CENTRUM TABLET PO SCH (10:33)
[2018-09-08] MEDS: HYDROCHLOROTHIAZIDE PO SCH (10:33)
[2018-09-08] MEDS: PROSCAR PO SCH (10:33)
[2018-09-08] MEDS: COREG PO SCH ×2 (10:33→22:09)
[2018-09-08] MEDS: ENTRESTO 49 MG-51 MG TABLET PO SCH ×2 (10:33→22:08)
[2018-09-08] MEDS: LANOXIN PO SCH (10:34)
[2018-09-08] MEDS: ASPIRIN EC PO SCH (10:34)
--- NOTE | 2018-09-08 15:22 | PROGRESS NOTE ---
DATE: 09/08/2018 SUBJECTIVE: The patient states that he feels a lot better. He states that he is tolerating his clear liquid diet without any difficulty, and he continues to have bowel movements; however, he does complain of diarrhea. OBJECTIVE: Vital Signs: Temperature 98.2 degrees, blood pressure 123/70, heart rate 70, respirations 16, O2 saturation is 98% on room air. General: This is a chronically ill-appearing elderly male, lying in bed in no acute distress. Heart: S1, S2 normal. Regular rate and rhythm. Lungs: Clear to auscultation bilaterally. Abdomen: Positive bowel sounds. Soft, nontender, nondistended. Extremities: No edema, no cyanosis. Neurologic: The patient is alert and oriented x3. DIAGNOSTIC STUDIES: Labs reviewed. ASSESSMENT AND PLAN: 1. Ileus versus small bowel obstruction. The patient is having regular bowel movements, and he is tolerating a clear liquid diet. Further management as per the general surgeon. 2. Chronic diarrhea. We will order stool studies. 3. Chronic systolic congestive heart failure. Continue on the current cardiac medications. 4. Atrial fibrillation. The patient is rate controlled. 5. Benign prostatic hypertrophy. Continue on Proscar. 6. Acute bronchitis. Improved. Continue with Rocephin. 7. Hypophosphatemia. We will replace the patient's phosphorus. 8. Deep vein thrombosis prophylaxis. Continue on Lovenox. cc: Katy Person MD
[2018-09-08] MEDS ORDERED: POTASSIUM PHOSPHATE 40 MMOL in NS 250 ML IV ONE (16:00)
[2018-09-08] MEDS: ROCEPHIN 1 GM in NS 50 ML IV SCH (17:51)
[2018-09-08] MEDS: LIPITOR PO SCH (22:08)
[2018-09-08] MEDS: ROBITUSSIN-DM PO PRN (22:18)
[2018-09-09] MEDS: DUONEB (A & A) INH SCH ×4 (05:17→21:53)
[2018-09-09] MEDS: PROTONIX IV SCH (06:18)
[2018-09-09] MEDS: SODIUM CHLORIDE 0.9% INJ SCH (06:18)
[2018-09-09 06:46] LABS: HEMATOCRIT 38.3 % (42.0-52.0); HEMOGLOBIN 13.7 g/dL (14.0-18.0); MCH 32.3 PG (27-31); MCHC 35.8 g/dL (33-37); MCV 90.3 FL (81-99); MPV 9.7 FL (7.4-10.4); RBC 4.24 XMIL (4.7-6.1); RDW 12.7 % (11.5-14.5); WBC 7.88 X1000 (4.8-10.8)
--- NOTE | 2018-09-09 07:11 | GENERAL SURGERY PROGRESS NOTE ---
DATE: 09/09/2018 SUBJECTIVE: Patient seems to be doing okay. He is still having bowel movements. His abdominal films still show a persistent picture of bowel obstruction. OBJECTIVE: Vital Signs: Patient is currently afebrile. His vital signs are stable. General: No acute distress. HEENT: Normocephalic, atraumatic. Pupils equal, round, reactive to light. Mucous membranes moist. Oropharynx benign. Neck: Supple trachea midline. Cardiovascular: Regular rate and rhythm. Lungs: Grossly clear. Abdomen: Soft, nontender, nondistended. Extremities: Moves all extremities. Neurologic: Grossly intact. Skin: No signs of jaundice. Vascular: All extremities perfused. LABORATORY: None this morning as of yet. Reviewed labs from yesterday. IMAGING: None this morning as of yet. ASSESSMENT AND PLAN: A 72-year-old gentleman with bowel obstruction. Bowel obstruction: At this time, he is on a clear liquid diet and seems to be tolerating and having bowel movements. His abdominal films seem to be persistently showing obstruction, so we will get a small bowel series to prove if he is obstructing or if he has a distal partial obstruction. If that shows a normal follow through, may consider just advancing his diet. cc: Yang Kee MD
[2018-09-09 07:16] LABS: AGAP 8; ALBUMIN 3.3 g/dL (3.5-5.0); BUN 4 mg/dL (8-22); CALCIUM 8.8 mg/dL (8.8-10.2); CHLORIDE 103 mmol/L (98-107); COSMO 273; CREATININE 0.9 mg/dL (0.7-1.2); ESTIMATED GFR > 60; GLUCOSE 101 mg/dL (70-104); PHOSPHORUS 3.9 mg/dL (2.7-4.5); POTASSIUM 3.6 mmol/L (3.5-5.1); SODIUM 138 mmol/L (136-145); TCO2 27 mmol/L (25-35)
[2018-09-09] MEDS: MUCOMYST 20% INH SCH ×2 (08:14→21:38)
[2018-09-09] MEDS: MAGNESIUM GLUCONATE PO SCH (11:54)
[2018-09-09] MEDS: ENTRESTO 49 MG-51 MG TABLET PO SCH ×2 (11:55→20:30)
[2018-09-09] MEDS: LOVENOX SUBQ SCH (11:55)
[2018-09-09] MEDS: COREG PO SCH ×2 (11:55→20:30)
[2018-09-09] MEDS: HYDROCHLOROTHIAZIDE PO SCH (11:55)
[2018-09-09] MEDS: PROSCAR PO SCH (11:55)
[2018-09-09] MEDS: FLOMAX PO SCH (11:55)
[2018-09-09] MEDS: ASPIRIN EC PO SCH (11:55)
[2018-09-09] MEDS: CENTRUM TABLET PO SCH (11:55)
[2018-09-09] MEDS: LANOXIN PO SCH (11:56)
[2018-09-09] MEDS ORDERED: MAGNESIUM SULFATE 2 GM/S.W.I. 2 GM/50 ML IVPB IV ONE (13:36)
--- NOTE | 2018-09-09 13:55 | Diag Imaging Result Doc PS360 ---
ABDOMEN FLAT/UPRIGHT - 09/09/2018 INDICATION: obstruction COMPARISON: 09/07/2018 FINDINGS: There are numerous gas dilated loops of bowel similar to prior. There is no visible colon or rectal gas on today's exam. IMPRESSION: Worsening small bowel obstruction. No obvious colon or rectal gas. Electronically signed by Dominic Muñoz 09/09/2018 1:53 PM
--- NOTE | 2018-09-09 15:36 | Diag Imaging Result Doc PS360 ---
SMALL BOWEL SERIES ONLY - 09/09/2018 INDICATION: follow up bowel obstruction TECHNIQUE: COMPARISON: 09/02/2018 FINDINGS: Progression of contrast through the small bowel was very slow. However by five hours, there was probably some contrast reaching the colon. The colon is extremely collapsed. At the end of the exam there is some rectal gas present. All the proximal small bowel loops are slightly dilated but there is no specific transition point visible. IMPRESSION: Very slow transit through the small bowel. Some nonspecific, mildly dilated small bowel loops. Very little colon or rectal gas. More consistent with ileus or partial obstruction. Electronically signed by Dominic Muñoz 09/09/2018 3:34 PM
[2018-09-09] MEDS ORDERED: NS 500 ML ONE (15:56)
[2018-09-09] MEDS: ROCEPHIN 1 GM in NS 50 ML IV SCH (17:20)
[2018-09-09] MEDS: LIPITOR PO SCH (20:30)
[2018-09-10] MEDS: DUONEB (A & A) INH SCH ×4 (03:35→21:30)
[2018-09-10] MEDS: SODIUM CHLORIDE 0.9% INJ SCH (06:05)
[2018-09-10] MEDS: PROTONIX IV SCH (06:05)
[2018-09-10 06:26] LABS: HEMATOCRIT 38.9 % (42.0-52.0); HEMOGLOBIN 13.9 g/dL (14.0-18.0); MCH 32.3 PG (27-31); MCHC 35.7 g/dL (33-37); MCV 90.3 FL (81-99); MPV 9.7 FL (7.4-10.4); RBC 4.31 XMIL (4.7-6.1); RDW 12.7 % (11.5-14.5); WBC 7.62 X1000 (4.8-10.8)
[2018-09-10 07:03] LABS: AGAP 9; ALBUMIN 3.6 g/dL (3.5-5.0); BUN 4 mg/dL (8-22); CALCIUM 9.2 mg/dL (8.8-10.2); CHLORIDE 101 mmol/L (98-107); COSMO 272; CREATININE 0.8 mg/dL (0.7-1.2); ESTIMATED GFR > 60; GLUCOSE 96 mg/dL (70-104); PHOSPHORUS 3.1 mg/dL (2.7-4.5); POTASSIUM 3.8 mmol/L (3.5-5.1); SODIUM 138 mmol/L (136-145); TCO2 28 mmol/L (25-35)
[2018-09-10] MEDS: MUCOMYST 20% INH SCH ×2 (11:24→23:30)
[2018-09-10] MEDS: FLOMAX PO SCH (11:37)
[2018-09-10] MEDS: LOVENOX SUBQ SCH (11:37)
[2018-09-10] MEDS: ASPIRIN EC PO SCH (11:37)
[2018-09-10] MEDS: ENTRESTO 49 MG-51 MG TABLET PO SCH ×2 (11:37→23:56)
[2018-09-10] MEDS: PROSCAR PO SCH (11:37)
[2018-09-10] MEDS: LANOXIN PO SCH (11:37)
[2018-09-10] MEDS: CENTRUM TABLET PO SCH (11:37)
[2018-09-10] MEDS: COREG PO SCH ×2 (11:37→23:56)
[2018-09-10] MEDS: HYDROCHLOROTHIAZIDE PO SCH (11:37)
[2018-09-10] MEDS: MAGNESIUM GLUCONATE PO SCH (11:37)
[2018-09-10] MEDS: ROBITUSSIN-DM PO PRN ×2 (11:49→17:31)
[2018-09-10] MEDS: ROCEPHIN 1 GM in NS 50 ML IV SCH (17:31)
--- NOTE | 2018-09-10 22:14 | PROGRESS NOTE ---
DATE: 09/09/2018 SUBJECTIVE: The patient is resting comfortably in bed. He did undergo a small bowel follow through today. OBJECTIVE: Vital signs: Temperature 98.3, blood pressure 141/85, heart rate 69, respirations 16, O2 saturations 97% on room air. General: This is a chronically ill-appearing elderly male lying in bed in no acute distress. Heart: S1 and S2 normal. Lungs: Clear to auscultation bilaterally. Abdomen: Positive bowel sounds. Soft, nontender, nondistended. Extremities: No edema. No cyanosis. Neurologic: The patient is alert and oriented x4. LABORATORIES: Reviewed. ASSESSMENT AND PLAN: 1. Small-bowel obstruction. The patient is scheduled to undergo a small bowel series today. Further management as per the general surgeon. 2. Diarrhea. Improved. 3. Signs of systolic congestive heart failure. Stable. Continue on the current cardiac medications. 4. Atrial fibrillation. The patient is currently rate controlled. 5. Benign prostatic hyperplasia. Continue on Proscar and Flomax. 6. Acute bronchitis. Improved. Taking the bronchodilator therapy and Rocephin. 7. Hypomagnesemia. We will replace the patient's magnesium. 8. Deep vein thrombosis prophylaxis. Continue on Lovenox. cc: Katy Person MD MTDD
[2018-09-10] MEDS: LIPITOR PO SCH (23:56)
[2018-09-11] MEDS: DUONEB (A & A) INH SCH ×4 (03:55→09:14)
[2018-09-11] MEDS: SODIUM CHLORIDE 0.9% INJ SCH (06:18)
[2018-09-11] MEDS: PROTONIX IV SCH (06:18)
[2018-09-11 06:58] LABS: AGAP 4; ALBUMIN 3.4 g/dL (3.5-5.0); BUN 8 mg/dL (8-22); CHLORIDE 101 mmol/L (98-107); COSMO 272; CREATININE 0.9 mg/dL (0.7-1.2); ESTIMATED GFR > 60; GLUCOSE 94 mg/dL (70-104); PHOSPHORUS 3.1 mg/dL (2.7-4.5); POTASSIUM 3.5 mmol/L (3.5-5.1); SODIUM 137 mmol/L (136-145); TCO2 32 mmol/L (25-35)
[2018-09-11 07:58] VITALS: BP 159/81
[2018-09-11] MEDS: MUCOMYST 20% INH SCH (08:27)
[2018-09-11] MEDS: CENTRUM TABLET PO SCH (10:39)
[2018-09-11] MEDS: ASPIRIN EC PO SCH (10:39)
[2018-09-11] MEDS: COREG PO SCH (10:39)
[2018-09-11] MEDS: ENTRESTO 49 MG-51 MG TABLET PO SCH (10:40)
[2018-09-11] MEDS: MAGNESIUM GLUCONATE PO SCH (10:40)
[2018-09-11] MEDS: PROSCAR PO SCH (10:40)
[2018-09-11] MEDS: FLOMAX PO SCH (10:40)
[2018-09-11] MEDS: LANOXIN PO SCH (10:41)
[2018-09-11] MEDS: HYDROCHLOROTHIAZIDE PO SCH (10:41)
[2018-09-11] MEDS: LOVENOX SUBQ SCH (10:42)
--- NOTE | 2018-09-12 08:30 | DISCHARGE SUMMARY ---
ADMISSION DATE: 09/02/2018 DISCHARGE DATE: 09/11/2018 PHYSICIAN: Dr. Gómez Maldonado. HISTORY OF PRESENT ILLNESS: We admitted 72-year-old patient of Dr. Gómez Maldonado. His surgeon was Dr. Malachi Hernandez in the past. The day before admission on 09/02/2018, started having abdominal discomfort and distention which intensified. He is brought to the emergency room with nausea and finally got some relief with NG tube and IV Zofran. Radiographic studies consistent with small- bowel obstruction. Dr. Kee's surgery followed him. PAST MEDICAL HISTORY: 1. Hypertension. 2. Benign prostatic hypertrophy. 3. Possible heart failure. He is on digoxin. 4. Atrial fibrillation. PAST SURGICAL HISTORY: He has had 2 hernia repairs, abdominal hernia repair; I think one by Dr. Maria G Cruz and [address] Hernandez. ADMISSION DIAGNOSES: 1. Small bowel obstruction. Had NG tube. Received IV fluids and Zofran for nausea. He showed steady improvement. We were able to advance his diet and his bowels were moving. [place] he could go home on 09/11/2018. 2. History of chronic atrial fibrillation. Rate controlled and continued to be rate controlled. He is on Xarelto and we did lower the dose down, so we gave him Lovenox. We gave him 1 mg/kg q.12 hours and we were able to give him full-dose. Plan to discharge him home with the Xarelto. 3. History of osteoarthritis. 4. History of congestive heart failure. He remained well compensated. He is on Entresto and so we did watch his fluids and electrolytes. 5. Benign prostatic hypertrophy on Flomax 0.4 mg a day. 6. History of hypercholesterolemia. Continue him on atorvastatin. 7. Benign prostatic hypertrophy. He was on finasteride and tamsulosin, which we will put him back on those. Plan to discharge him on 09/11/2018. DISCHARGE MEDICATIONS: 1. He will be on aspirin 325 mg a day. 2. Lipitor 40 mg a day. 3. Coreg 25 mg b.i.d. 4. Lanoxin 125 mcg p.o. daily. 5. Proscar 5 mg a day. 6. Multivitamin 1 a day. 7. He is on his Entresto 49-51, one tablet twice a day and Flomax 0.4 mg daily. He will follow up with his primary care in a couple weeks. Follow up with Dr. Hernandez, Dr. Kee as needed. cc: Michelet Velazquez MD
--- NOTE | 2018-09-12 15:56 | GENERAL SURGERY PROGRESS NOTE ---
DATE: 09/10/2018 SUBJECTIVE: The patient seems to be doing okay. A small bowel series showed stuff going through, although it is somewhat sluggish. He is still having bowel movements, passing gas, and tolerating his diet. OBJECTIVE: Vital Signs: The patient is currently afebrile. His vital signs are stable. General: No acute distress. HEENT: Normocephalic, atraumatic. Pupils equal, round, and reactive to light. Mucous membranes moist. Oropharynx benign. Neck: Supple. Trachea midline. Cardiovascular: Regular rate and rhythm. Lungs: Clear. Abdomen: Soft, nontender, nondistended. Extremities: Moves all extremities. Neurologic: Grossly intact. Skin: No signs of jaundice. Vascular: All extremities perfused. LABORATORY DATA: None. Small bowel series as noted above. ASSESSMENT/PLAN: A 72-year-old gentleman with a small bowel obstruction. At this time he seems to be doing about the same. He showed contrast passing through. We will start him on a regular diet and see how he is. Hopefully he will tolerate it. cc: Yang Kee MD
--- NOTE | 2018-09-13 12:59 | GENERAL SURGERY PROGRESS NOTE ---
DATE: 09/11/2018 SUBJECTIVE: The patient seems to be doing okay, tolerating his regular diet. OBJECTIVE: Vital signs: The patient is currently afebrile. His vital signs are stable. General exam: No acute distress. HEENT: Normocephalic, atraumatic. Pupils equal, round, reactive to light. Mucous membranes moist. Oropharynx benign. Neck supple. Trachea is midline. Cardiovascular: Regular rate and rhythm. Lungs grossly clear. Abdomen is soft, nondistended. Extremities: Moves all extremities. Neurologic: Grossly intact. Skin: No signs of jaundice. Vascular: All extremities perfused. LABORATORY: None at this time. Reviewed labs from yesterday. ASSESSMENT AND PLAN: A 72-year-old with resolving partial small bowel obstruction. 1. Resolving partial small bowel obstruction at this time. Patient is tolerating a regular diet. From a surgical point of view I think he is doing okay. Will defer discharge to the hospitalist service but I think we can get him out of here soon. cc: Yang Kee MD
== END 2018-09-11 11:16 | disposition home or self-care (01) | DRG 389 ==
LOC: ED 11:50 → SUATTDRO 17:16 → 4N 17:16
PROVIDERS: ATTEND Emergency Medicine
CPT/HCPCS: 71250; 74000; 74018; 74019; 74020; 74022; 74177; 74250; 80053; 80069; 81001; 82150; 82272; 82438; 83630; 83690; 83735; 83880; 84100; 84302; 84999; 85025; 85027; 87045; 87046; 87070; 87205; 87324; 87449; 89055; 89220; 93005; 94640; 94761; 96372; 96374; 96375; 96376; 99285; A9270; C9113; J0696; J1650; J1940; J2270; J2405; J2550; J3475; J3480; J7030; J7040; J7050; Q9967; S0138; S0164